=== PATIENT | female | born 1955 | race African-American/Black ===

== ENCOUNTER → 2016-11-30 | Outpatient (CLI) | payer OTHER ==
[~2016-11-30] MED LIST: ALPR-411 PO; FLUT0.15 NAE; FLX10 PO; HYDR-5688 PO; LEVO-366 PO; PROAIR HFA INH; PROM25TA16 PO; PROM25TA9 PO; ZNTT/150 PO
--- NOTE | 2016-11-30 12:26 | MAMMOGRAPHY REPORT ---
BILATERAL DIGITAL DIAGNOSTIC MAMMOGRAM TOMOSYNTHESIS WITH CAD AND TARGETED LEFT ULTRASOUND: 7 CLINICAL HISTORY: The patient reports an intermittent palpable lump in her left axilla which she has had since the summer. The patient reports a family history of breast cancer in her sister as well as daughter. TECHNIQUE: Breast tomosynthesis in addition to standard 2D mammography was performed. Current study was also evaluated with a Computer Aided Detection (CAD) system. Bilateral CC and MLO 2-D and boom synthesis images and spot magnification left CC and ML views were obtained. COMPARISON: Comparison is made to exams dated: 03/08/2015 mammogram, 12/11/2013 mammogram - [facility], 11/06/2012 mammogram - [facility], 09/05/2011 mammogram, 09/04/2010 mammogram, a nd 08/15/2010 mammogram - [facility]. BREAST COMPOSITION: The tissue of both breasts is heterogeneously dense, which may obscure small ma sses. FINDINGS: A triangle marker zhu the site of the palpable lump in the left axillary region. Morph ologically normal left axillary lymph nodes are seen in this region, without evidence of a mass or o ther suspicious mammographic abnormality. There are multiple scattered groups of calcifications thr oughout both breasts. There is one group of coarse heterogeneous calcifications in the left upper o uter quadrant which measures 2.2 cm, and appears more prominent compared to prior exams. This group appears similar to other groups scattered throughout both breasts. 2 biopsy marker clips are seen in the right breast from prior benign stereotactic biopsy of calcifications. The discussion of ster eotactic biopsy versus interval follow-up were discussed with the patient, and she prefers follow-up at this time given that she has had other benign biopsies of calcifications. Follow-up does seem r easonable given that this group appears similar to multiple other groups within both breasts, which are more suggestive of benign calcifications such as degenerating fibroadenomas. The remainder of b oth breasts are stable compared to prior exams, without suspicious masses, calcifications, or areas of architectural distortion noted. Targeted ultrasound was performed of the area of the palpable lump pointed out by the patient in the left axilla. The patient could not clearly pinpoint the lump on today's exam, however, could point to the general region of the lump. No suspicious masses or other suspicious sonographic abnormalit ies were noted in this region. Morphologically normal left axillary lymph nodes were incidentally s een. IMPRESSION: ACR-BI-RADS CATEGORY 3: PROBABLY BENIGN, TARGETED ULTRASOUND ACR-BI-RADS CATEGORY 3: [place] OBABLY BENIGN 1. No suspicious mammographic or sonographic abnormality at the site of the palpable left axillary lump. Recommend clinical follow-up. 2. Grouped coarse heterogeneous calcifications in the left upper outer quadrant appear more promine nt compared to prior exams. However, they do appear similar to multiple other grouped calcification s bilaterally. 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 Recommend follow-up diagnostic mammograms of the left breast in 6 months to confirm stability and/or coarsening on spot magnification views. The patient and her sister have been verbally notified of the results. Approximately 10% of breast cancers are not detected with mammography. A negative mammographic repor t should not delay biopsy if a clinically suggestive mass is present. Kavita Fierro M.D. ah/:11/30/2016 10:46:40 [employer] Operator: Rebecca Peters, [facility] letter sent: Follow Up Recommended 3 BI-RADS Code: ACR-BI-RADS Category 3: Probably Benign Ultrasound BI-RADS: ACR-BI-RADS Category 3: P robably Benign
== END | disposition home or self-care (01) ==
LOC: C.MAMM 09:00
PROVIDERS: ATTEND Nurse Practitioner
DX: N63 Unspecified lump in breast (principal)

== ENCOUNTER 2016-12-27 16:58 | Emergency (ER) | payer OTHER ==
[~2016-12-27] VITALS: Ht 154.9 cm; Wt 98.5 kg
[~2016-12-27 16:58] MED LIST changes: -FLUT0.15 NAE; -FLX10 PO; -HYDR-5688 PO; -LEVO-366 PO; -PROAIR HFA INH; -PROM25TA16 PO
[2016-12-27 17:02] VITALS: TEMP 36.4; Ht 154.9 cm; Wt 98.5 kg
[2016-12-27] MEDS ORDERED: FLUT0.15 NAE (19:18)
[2016-12-27] MEDS ORDERED: PROAIR HFA INH (19:18)
[2016-12-27] MEDS ORDERED: PROM25TA16 PO (19:18)
[2016-12-27] MEDS ORDERED: FLX10 PO (19:18)
[2016-12-27] MEDS ORDERED: METHYLPREDNISOLONE 125 MG VIAL IV STA (19:34)
[2016-12-27] MEDS ORDERED: ALBUT/IPRATROP 3MG/0.5MG NEB 3 ML VIAL INH ONE (19:45)
[2016-12-27] MEDS ORDERED: SODIUM CHLORIDE 0.9% 1000ML 1,000 ML IV ONE (19:45)
[2016-12-27 20:24] LABS: URINE APPEARANCE CLEAR (CLEAR); URINE BILIRUBIN NEG (NEG); URINE COLOR YELLOW; URINE EPITHELIAL CELL AUTO 20-30 /lpf (0-5); URINE NITRITE NEG (NEG); UROBILINOGEN NEG (NEG); ZZUR CULT IF INDIC CLEAN CATCH NO
[2016-12-27 20:31] LABS: MANUAL MICROSCOPIC REQUIRED? NO; REVIEW REQ? NO
--- NOTE | 2016-12-27 20:55 | DIAGNOSTIC IMAGING REPORT ---
CHEST 2 VIEWS ROUTINE CLINICAL HISTORY: Cough. Flulike symptoms. Fatigue, headache. COMPARISON STUDY: 09/08/2016 FINDINGS: The cardiac and mediastinal contours are normal. There is no evidence of focal pulmonary consolidation. There is no evidence of failure. No pleural effusions are visualized.[ IMPRESSION: No active disease in the chest. Electronically signed by: Madhu Peterson M.D. 12/27/2016 8:53 PM Dictated Date/Time: 12/27/2016 8:53 PM
[2016-12-27 21:18] LABS: BASO % 0.4 %; BASO ABS # 0.02 K/uL (0-0.2); COMPLETE YES; EOS % 2.1 %; HEMATOCRIT 38.8 % (37-47); IG% 0.4 %; LYMPH % 25.7 %; LYMPH ABS # 1.36 K/uL (1.2-3.4); MEAN CELL VOLUME 84.7 fL (80-100); MEAN CORPUSCULAR HEMOGLOBIN 28.6 pg (25-34); MEAN CORPUSCULAR HGB CONC 33.8 g/dl (32-36); MEAN PLATELET VOLUME 10.3 fL (7.4-10.4); NEUT % 67.4 %; PLATELET COUNT 262 K/uL (130-400); RED BLOOD COUNT 4.58 M/uL (4.2-5.4); WHITE BLOOD COUNT 5.29 K/uL (4.8-10.8)
[2016-12-27 21:33] LABS: BUN/CREATININE RATIO 14.2 (10-20); CALCIUM 9.8 mg/dl (8.5-10.1); CREATININE 0.91 mg/dl (0.60-1.20); MAGNESIUM 2.1 mg/dl (1.8-2.4); POTASSIUM 3.9 mmol/L (3.5-5.1)
[2016-12-27 21:43] LABS: ALB/GLOB RATIO 0.9 (0.9-2); THYROID STIMULATING HORMONE 0.613 uIu/ml (0.300-4.500)
[2016-12-27] MEDS ORDERED: LEVO-366 PO (22:28)
[2016-12-27 22:30] VITALS: BP 153/96; PULSE 82; O2SAT 98
[2016-12-27] MEDS ORDERED: LEVOFLOXACIN 250 MG TAB PO ONE (22:30)
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
== END 2016-12-27 22:53 | disposition home or self-care (01) ==
LOC: C.EDB 16:59 → C.EDC 22:53
DX: J01.90 Acute sinusitis, unspecified (principal); J20.9 Acute bronchitis, unspecified; F41.9 Anxiety disorder, unspecified; M70.72 Other bursitis of hip, left hip; M70.71 Other bursitis of hip, right hip; M75.31 Calcific tendinitis of right shoulder; M19.90 Unspecified osteoarthritis, unspecified site; F32.9 Major depressive disorder, single episode, unspecified; K21.9 Gastro-esophageal reflux disease without esophagitis; Z83.3 Family history of diabetes mellitus; Z83.79 Family history of other diseases of the digestive system; Z80.9 Family history of malignant neoplasm, unspecified; Z82.49 Family history of ischemic heart disease and other diseases of the circulatory system; Z84.1 Family history of disorders of kidney and ureter; Z83.6 Family history of other diseases of the respiratory system; Z79.899 Other long term (current) drug therapy

== ENCOUNTER 2017-03-28 21:02 | Emergency (ER) | payer OTHER ==
[~2017-03-28] VITALS: Ht 154.9 cm; Wt 101.3 kg
[~2017-03-28 21:02] MED LIST changes: -ALPR-411 PO; +FLUT0.15 NAE; +FLX10 PO; +PROAIR HFA INH; -PROM25TA9 PO; -ZNTT/150 PO
[2017-03-28 21:05] VITALS: TEMP 36.6; Ht 154.9 cm; Wt 101.3 kg
--- NOTE | 2017-03-28 22:01 | DIAGNOSTIC IMAGING REPORT ---
LEFT SHOULDER MIN 2 VIEWS ROUTINE CLINICAL HISTORY: bilateral shoulder pain pain COMPARISON: None. DISCUSSION: Moderate degenerative change glenohumeral joint. Significant degenerative change acromioclavicular joint. Minimal calcific tendinitis. No evidence for acute bony pathology. There is no evidence for soft tissue swelling. IMPRESSION: Moderate to rather significant degenerative change. Mild calcific tendinitis. Electronically signed by: Joseph Ndiaye M.D. 03/28/2017 10:00 PM Dictated Date/Time: 03/28/2017 10:00 PM
--- NOTE | 2017-03-28 22:02 | DIAGNOSTIC IMAGING REPORT ---
RIGHT SHOULDER MIN 2 VIEWS ROUTINE CLINICAL HISTORY: bilateral shoulder pain Right pain COMPARISON: None. DISCUSSION: Considerable degenerative change glenohumeral and acromioclavicular joints. Mild calcific supraspinatus tendinitis. No evidence for fracture or dislocation. There is no evidence for soft tissue swelling. IMPRESSION: Significant degenerative change. Calcific supraspinatus tendinitis. Electronically signed by: Joseph Ndiaye M.D. 03/28/2017 10:01 PM Dictated Date/Time: 03/28/2017 10:00 PM
--- NOTE | 2017-03-28 22:16 | EMERGENCY ROOM VISIT NOTE ---
ED Visit Note First contact with patient: 21:16 The patient was seen and examined with Jose Foy PA-C. I agree with the history, physical and findings. Please see the note for disposition and details. She has bilateral calcific tendonitis.
[2017-03-28] MEDS ORDERED: HYDR-5688 PO (22:53)
[2017-03-28] MEDS ORDERED: NORCO 5/325MG HOME PACK PO ONE (23:00)
[2017-03-28 23:06] VITALS: BP 135/85; PULSE 93; O2SAT 97
--- NOTE | 2017-03-29 03:23 | EMERGENCY ROOM VISIT NOTE ---
ED Visit Note First contact with patient: 21:16 Chief Complaint: Having pain in both shoulders. History of Present Illness: Ms. Pulido is a 61-year-old black female who ambulates into the ED accompanied by multiple family members complaining of bilateral shoulder pain with left shoulder prominence. Historically patient reports she's had multiple episodes of tendinitis and she has bilateral arthritis of the shoulders. Patient reports she has not recently injured her shoulders but reports that today she developed moderate to severe pain in both shoulders with left-sided prominence. Currently she describes the pain as a deep achy sensation. The pain is located throughout the shoulder joints, and into the deltoid muscles. There is not one area more prominent than the other. She rates her discomfort 7/10. The pain is nonradiating. Her pain worsens with all movement and palpation of the shoulders. She has not identified any alleviating factors related to the pain. She has not taken any medications for pain prior to arrival at the hospital. She denies any associated neck pain, upper extremity weakness/numbness/tingling , fevers, chills, sweats, skin eruptions, skin color changes, upper respiratory tract symptoms, cough, wheezing, shortness of breath, abdominal pain, nausea/ vomiting. Review of Systems: As noted above in history of present illness. 8 body systems were reviewed and found to be negative as noted above. Past Medical History: As previously noted bronchitis, asthma, hiatal hernia, GERD, anxiety, status post 2 sections, 3 unspecified knee surgeries and a hysterectomy. Current Medications: Xanax, Zantac, promethazine, Flonase. Allergies to Medications: Aspirin, ibuprofen, Toradol, lorazepam, NSAIDs, oxycodone. Social History: Patient is not employed; she lives alone and feels safe in her home environment; she denies tobacco and alcohol use. Physical Examination: Vital Signs: Date Time Temp Pulse Resp B/P Pulse Ox O2 Delivery O2 Flow Rate FiO2 03/28/17 23:06 93 20 135/85 97 03/28/17 21:05 36.6 104 20 149/88 97 Room Air GENERAL: 61-year-old female in mild to moderate distress due to pain, nontoxic- appearing, afebrile and hemodynamically stable. NEUROLOGICAL: Awake, alert and oriented to person, place and time. Answering questions appropriately and following commands. Normal gait. Good hand eye coordination. No focal motor or sensory deficits. SKIN: Warm, dry and pink. No soft tissue eruptions or trauma noted. UPPER EXTREMITIES: No gross bony deformity. Bilaterally patient has tenderness over the glenohumeral joint, the acromioclavicular joint, the distal clavicles, the scapulas, throughout the trapezius muscles excluding cervical portion of the muscles. They are tender there is questionable spasm. I do not appreciate any bony deformity or crepitus. She refuses to do range of motion exercises and muscle strength testing due to pain. I was not able to elicit deep tendon reflexes. Throughout the hands the skin was warm and pink and capillary refill is brisk. She is able to distinguish light sensations through all dermatomes. ED Course: Patient is assessed as noted above. Patient requested x-rays. Right Shoulder X-Rays: Were read by myself and the radiologist showing significant degenerative changes of the glenohumeral and acromioclavicular joint , mild calcification supraspinatus tendinitis and no evidence of fracture, dislocation or soft tissue swelling. Left Shoulder X-Rays: Were read by myself and the radiologist showing moderate degenerative changes of the glenohumeral joint and acromioclavicular joint. Minimal calcification tendinitis. No evidence of soft tissue swelling. Clinical Impression: Bilateral shoulder pain. Degenerative shoulder disease and calcification tendinitis. Disposition: Patient discharged home in stable condition accompanied by family member; prior to departure she was reassessed and subjectively reported she was feeling the same. Plan: Cough or measures including rest, ice and a sliding pain scale of acetaminophen and [place] was discussed with the patient. Patient was encouraged to follow-up with her primary care provider for recheck in 4-5 days. Patient was encouraged return to the ED for worsening/uncontrolled pain, upper extremity weakness/numbness/tingling or any new/concerning symptoms.
[2017-08-19] MEDS ORDERED: ALPR-411 PO (00:37)
[2017-10-01] MEDS ORDERED: TPRSR25 PO (15:23)
== END 2017-03-28 23:07 | disposition home or self-care (01) ==
LOC: C.EDB 21:04 → C.EDD 23:07
DX: M25.511 Pain in right shoulder (principal); M25.512 Pain in left shoulder; M19.011 Primary osteoarthritis, right shoulder; M19.012 Primary osteoarthritis, left shoulder; M75.32 Calcific tendinitis of left shoulder; M75.31 Calcific tendinitis of right shoulder; J45.909 Unspecified asthma, uncomplicated; K21.9 Gastro-esophageal reflux disease without esophagitis; F41.9 Anxiety disorder, unspecified; Z79.899 Other long term (current) drug therapy

== ENCOUNTER → 2017-04-12 | Outpatient (CLI) | payer OTHER ==
[~2017-04-12] MED LIST changes: +ALBU18002 INH; +ALPR-411 PO; -FLX10 PO; +HYDR-5688 PO; +PRLSR20 PO; +PROM12.57 PO; +PROM25TA16 PO; +TPRSR/25 PO; +TPRSR25 PO; +ZNTT/150 PO
== END | disposition home or self-care (01) ==
LOC: C.CPL 15:46
PROVIDERS: ATTEND Orthopaedic Surgery
DX: M75.122 Complete rotator cuff tear or rupture of left shoulder, not specified as traumatic (principal); R94.31 Abnormal electrocardiogram [ECG] [EKG]

== ENCOUNTER 2017-06-13 04:14 | Observation (INO) | payer OTHER ==
[2017-06-13] VITALS (7 sets, daily range): BP systolic 122–138; BP diastolic 81–86; PULSE 82–91; TEMP 36.4; O2SAT 95–100; Ht 154.9 cm; Wt 101.4 kg
[~2017-06-13] VITALS: Ht 154.9 cm; Wt 101.4 kg
[~2017-06-13 04:14] MED LIST changes: -ALBU18002 INH; -PRLSR20 PO; -PROM12.57 PO; -TPRSR/25 PO; -TPRSR25 PO
[2017-06-13] MEDS: NITROGLYCERIN 0.4 MG SL PER TAB CHARGE SL PRN ×3 (04:54→05:16)
[2017-06-13] MEDS ORDERED: HYDR-5688 PO (05:09)
[2017-06-13 05:30] LABS: BASO % 0.1 %; BASO ABS # 0.01 K/uL (0-0.2); COMPLETE YES; EOS % 0.9 %; HEMATOCRIT 37.4 % (37-47); IG% 0.4 %; LYMPH % 18.3 %; LYMPH ABS # 1.39 K/uL (1.2-3.4); MEAN CELL VOLUME 88.2 fL (80-100); MEAN CORPUSCULAR HEMOGLOBIN 27.6 pg (25-34); MEAN CORPUSCULAR HGB CONC 31.3 g/dl (32-36); MEAN PLATELET VOLUME 10.3 fL (7.4-10.4); MONO % 4.6 %; NEUT % 75.7 %; PLATELET COUNT 259 K/uL (130-400); RED BLOOD COUNT 4.24 M/uL (4.2-5.4); WHITE BLOOD COUNT 7.59 K/uL (4.8-10.8)
[2017-06-13 05:59] LABS: ALT/SGPT 20 U/L (12-78); AST/SGOT 13 U/L (15-37); BLOOD UREA NITROGEN 15 mg/dl (7-18); BUN/CREATININE RATIO 16.5 (10-20); CARBON DIOXIDE 27 mmol/L (21-32); CHLORIDE 109 mmol/L (98-107); CREATININE 0.93 mg/dl (0.60-1.20); GLUCOSE 114 mg/dl (70-99); SODIUM 141 mmol/L (136-145)
[2017-06-13 06:08] LABS: ALKALINE PHOSPHATASE 89 U/L (45-117)
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
[2017-06-13] MEDS ORDERED: ACETAMINOPHEN 325 MG TAB PO PRN (06:30)
[2017-06-13] MEDS ORDERED: ONDANSETRON INJ 2 MG/ML 2 ML VIAL IV PRN (06:30)
--- NOTE | 2017-06-13 06:34 | DIAGNOSTIC IMAGING REPORT ---
CHEST ONE VIEW PORTABLE CLINICAL HISTORY: Chest pain. COMPARISON STUDY: Chest radiograph December 27, 2016. FINDINGS: Mild elevation of the left hemidiaphragm is unchanged. There is no pneumothorax or pleural effusion. Pulmonary vascularity is normal. No consolidation is identified. Cardiomediastinal silhouette remains normal. Appearance of the chest is unchanged. IMPRESSION: No acute cardiopulmonary findings. Electronically signed by: Aguila White M.D. 06/13/2017 6:33 AM Dictated Date/Time: 06/13/2017 6:32 AM
[2017-06-13] MEDS ORDERED: ALBUTEROL HFA 8 GM INHALER INH PRN (06:45)
[2017-06-13] MEDS ORDERED: HYDROCODONE/ACETAMOPHEN 5/325MG TAB PO PRN (06:45)
[2017-06-13] MEDS ORDERED: ALPRAZOLAM 0.5 MG TAB PO PRN (06:45)
[2017-06-13] MEDS ORDERED: PROMETHAZINE HCL 25 MG TAB PO PRN (06:45)
[2017-06-13] MEDS ORDERED: IV FLUIDS COMPLETED PRN (06:45)
[2017-06-13] MEDS ORDERED: NSS + 20MEQ KCL 1000ML 1,000 ML IV SCH (08:00)
--- NOTE | 2017-06-13 08:08 | HISTORY & PHYSICAL EXAMINATION ---
DATE OF ADMISSION: 06/13/2017 CHIEF COMPLAINT: Chest pain with radiation to left arm and shortness of breath since early this morning. HISTORY OF PRESENT COMPLAINT: She is a 61-year-old female with significant past medical history of anxiety/depression and also esophageal reflux apparently, has not been sleeping since last evening due to severe anxiety. She felt chest pain at around 12-12:30 a.m. and then she took a half of her Xanax. The pain did not resolve and she called hotline and was advised to take precaution to relieve the panic attack. She took another Xanax without any relief, then she asked one of her relative to drive her to the Emergency Room. In the ER she received 3 nitro and that relieved the pain to some extent. She had to take another Xanax in my presence because of severe anxiety. She had the pain for about 1-2 hours and at some point she was feeling that somebody is sitting on her chest. She did not have any kind of pain before. She did have nausea but no vomiting and no abdominal pain. Did not have any fevers, chills or rigors. No cough or phlegm and no other symptoms. PAST MEDICAL HISTORY: Significant for anxiety/depression, and esophageal reflux. PAST SURGICAL HISTORY: Breast biopsy, benign in 2005, delivery, knee arthroscopy and partial hysterectomy and also recent left shoulder surgery. FAMILY HISTORY: Significant that mom has diabetes and heart disease. Father at the age of 80, history of CHF. Mother also did have lung cancer. SOCIAL HISTORY: She is . She has 3 children. She lives alone. She quit smoking in 1997 and does not use any alcohol. ALLERGIES: ASPIRIN, IBUPROFEN, KETOROLAC, TROMETHAMINE, LORAZEPAM, NSAIDs AND OXYCODONE. MEDICATIONS: She has been on Xanax 0.5 mg daily as needed, nasal spray as directed, hydrocodone/acetaminophen 5/325 one to two tablets p.o. q. 6 hourly p.r.n., Promethazine 25 mg q. 6 hourly p.r.n., Zantac 150 mg b.i.d., and ProAir 2 puffs q. 4 hourly p.r.n. REVIEW OF SYSTEMS: All other systems reviewed, unremarkable except those mentioned in history of present complaint. PHYSICAL EXAMINATION: GENERAL: On examination in the Emergency Room, she was still having some chest discomfort but no pain. VITAL SIGNS: Temperature 36.5, pulse was 84, blood pressure 106/69, saturation 97% on room air. HEENT: Unremarkable. NECK: Supple. No JVD, no bruit. CHEST: Clear to auscultation bilaterally. HEART: S1, S2 regular, no murmur. ABDOMEN: Soft, benign, nontender, no organomegaly. Bowel sounds present. EXTREMITIES: Trace edema bilaterally. MUSCULOSKELETAL SYSTEM: Did not show any acute arthritis involving any joint. CENTRAL NERVOUS SYSTEM: She was alert, awake, oriented x3. LABORATORY DATA: Noted. Today white count was 7.59, H&H 11.7/37.4, platelet was 259. Sodium 141, potassium 4.0, chloride 109, carbon dioxide 27, BUN 15, creatinine 0.93, random glucose 114. LFTs unremarkable. Troponin was less than 0.030. Albumin 3.3. EKG was in sinus rhythm, rate of 89 per minute. Normal axis and no significant ST-T wave changes. Chest x-ray, no acute findings. IMPRESSION AND PLAN: 1. Atypical chest pain. The patient will be admitted to telemetry unit for observation. She has severe anxiety. She cannot walk on a treadmill. Her initial troponin is negative. We will get serial troponin. She received nitro, will give nitro for chest pain if it recurs and probable dobutamine stress echo today. 2. Severe anxiety/depression, we will continue her Xanax and other medications. 3. Gastroesophageal reflux disease. She has been on ranitidine, continue with that. 4. Deep venous thrombosis prophylaxis with sequential compression devices and with ambulation. No pharmacological anticoagulation at this time. 5. Code status -- She will be a full code. In my clinical judgment, the beneficiary meets criteria as per CMS for 2 midnight stay in the hospital. PATRICIAD
[2017-06-13] MEDS ORDERED: FLUTICASONE PROPIONATE NA SPR 16 GM BTL NAE SCH (09:00)
[2017-06-13] MEDS ORDERED: RANITIDINE HCL 150 MG TAB PO SCH (09:00)
[2017-06-13] MEDS ORDERED: METOPROLOL TARTRATE 1 MG/ML VIAL ONE (12:01)
[2017-06-13] MEDS ORDERED: DOBUTamine HCL 12.5 MG/ML 20 ML VIAL ONE (12:01)
--- NOTE | 2017-06-13 14:23 | Discharge Instructions ---
Discharge Instructions Date of Service Jun 13, 2017. Admission Reason for Admission: Atypical Chest Pain Discharge Discharge Diagnosis / Problem: CHEST PAIN , NON CARDAIC , NEGATIVE CARDIAC STRESS TEST /ANXIETY DISORDER Discharge Goals Goal(s): Diagnostic testing, Therapeutic intervention Activity Recommendations Activity Limitations: resume your previous activity . Instructions / Follow-Up Instructions / Follow-Up HOSPITAL FOLLOW UP : 06/17/2017 1:00 PM Janet Black MD General Internal Medicine [facility] FOLLOW UP WITH PSYCHIATRY AT [facility] FOR ANXIETY /DEPRESSION PLEASE CALL TO SCHEDULE APPOINTMENT Current Hospital Diet Patient's current hospital diet: AHA Diet (Heart Healthy) Discharge Diet Recommended Diet: AHA Diet (Heart Healthy) Pending Studies Studies pending at discharge: no Medical Emergencies . Who to Call and When: Medical Emergencies: If at any time you feel your situation is an emergency, please call 911 immediately. . Non-Emergent Contact Non-Emergency issues call your: Primary Care Provider . . "Provider Documentation" section prepared by Jamee Mon. . VTE Core Measure Inpt VTE Proph given/why not?: Unfractionated heparin SQ
--- NOTE | 2017-06-13 15:06 | DOBUTAMINE ECHO ---
*NOTICE TO RECEIVING REPUBLICAN AGENCY This information is strictly Confidential and protected under [place] law. [place] law prohibits you from making any further disclosure of this information unless further disclosure is expressly permitted by the written consent of the person to whom it pertains or is authorized by law. A general authorization for the release of medical or other information is not sufficient for this purpose. Hospital accepts no responsibility if the information is made available to any other person, INCLUDING THE PATIENT. Interpretation Summary * STRESS STUDY: Normal pharmacologic stress echocardiogram. No echocardiographic or ECG evidence of myocardial ischemia having achieved heart rate adequate for diagnostic purposes. Procedure Details * DOBUTAMINE ECHO, CPT#30838 * ECHO COLOR FLOW, CPT #[id number] * ECHO DOPPLER, CPT #[id number] * A contrast injection of Definity was performed to improve assessment of LV function. * Contrast was injected into an intravenous site in the right arm. * One vial of Definity ultrasound contrast was diluted in normal saline to a total volume of 10 ml. A total of '5' ml of solution was administered during imaging. * Lot # [id number] of Definity utilized for procedure. * Expiration date AUG 21. * The attending nurse who injected the contrast agent was SUSAN HERNANDEZ, RN. Left Ventricle * The left ventricle is normal in size. * There is mild concentric left ventricular hypertrophy. * Left ventricular systolic function is low normal. * Ejection Fraction = 50-55%. * The left ventricular wall motion is normal at rest. Right Ventricle * The right ventricle is normal size. Atria * The left atrial size is normal. * Right atrial size is normal. * There is no evidence of atrial septal defect, but resolution does not allow assessment for a patent foramen ovale. Mitral Valve * The mitral valve is normal in structure and function. Tricuspid Valve * The tricuspid valve is normal in structure and function. Aortic Valve * The aortic valve is normal in structure and function. Pulmonic Valve * The pulmonic valve is not well visualized. Great Vessels * The aortic root and proximal ascending aorta are normal sized. Pericardium * There is no pericardial effusion. Stress Parameters * Baseline ECG was essentially normal. No symptoms were noted. * Stress ECG: No ST changes. No arrhythmias. * The stress ECG response was normal * The stress portion of this study was personally supervised by the undersigned interpreting physician. * Rest heart rate was '79' BPM. * Rest blood pressure was '126/67' * Maximum heart rate achieved was 151 bpm. * Maximum heart rate was 93 % of maximum age-predicted heart rate. * Maximum blood pressure was '175/97' * Maximum Dobutamine infusion rate was '40' mcg/kg/min. * A total of 0 mg of intravenous Atropine was used to supplement Dobutamine for heart rate response. * Dobutamine infusion was terminated due to achieving target heart rate * A total of 5.0 mg of IV Metoprolol was administered to reverse Dobutamine-induced tachycardia. Right Ventricle * The right ventricular wall motion is normal. MMode 2D Measurements and Calculations IVSd 1.2 cm IVSs 1.5 cm LVIDd 3.5 cm LVIDs 2.5 cm LVPWd 1.3 cm LVPWs 1.2 cm IVS/LVPW 0.98 FS 26.9 % EDV(Teich) 49.6 ml ESV(Teich) 23.0 ml EF(Teich) 53.5 % EDV(cubed) 41.6 ml ESV(cubed) 16.2 ml EF(cubed) 60.9 % % IVS thick 19.9 % % LVPW thick -3.74 % LV mass(C)d 144.3 grams LV mass(C)dI 72.9 grams/m\S\2 LV mass(C)s 107.6 grams LV mass(C)sI 54.4 grams/m\S\2 SV(Teich) 26.6 ml SI(Teich) 13.4 ml/m\S\2 SV(cubed) 25.3 ml SI(cubed) 12.8 ml/m\S\2 Ao root diam 2.7 cm Ao root area 5.6 cm\S\2 LA dimension 2.7 cm LA/Ao 1.0 LVOT diam 2.0 cm LVOT area 3.2 cm\S\2 LVAd ap4 33.4 cm\S\2 LVLd ap4 8.5 cm EDV(MOD-sp4) 105.5 ml EDV(sp4-el) 111.8 ml LVAs ap4 22.8 cm\S\2 LVLs ap4 7.4 cm ESV(MOD-sp4) 56.4 ml ESV(sp4-el) 59.2 ml EF(MOD-sp4) 46.5 % EF(sp4-el) 47.0 % LVAd ap2 36.0 cm\S\2 LVLd ap2 8.9 cm EDV(MOD-sp2) 117.3 ml EDV(sp2-el) 123.3 ml LVAs ap2 24.4 cm\S\2 LVLs ap2 7.4 cm ESV(MOD-sp2) 65.8 ml ESV(sp2-el) 68.6 ml EF(MOD-sp2) 43.9 % EF(sp2-el) 44.4 % LVLd %diff 5.0 % EDV(MOD-bp) 114.4 ml LVLs %diff -1.17 % ESV(MOD-bp) 61.0 ml EF(MOD-bp) 46.7 % SV(MOD-sp4) 49.0 ml SI(MOD-sp4) 24.8 ml/m\S\2 SV(MOD-sp2) 51.5 ml SI(MOD-sp2) 26.0 ml/m\S\2 SV(MOD-bp) 53.4 ml SI(MOD-bp) 27.0 ml/m\S\2 SV(sp4-el) 52.6 ml SI(sp4-el) 26.6 ml/m\S\2 SV(sp2-el) 54.7 ml SI(sp2-el) 27.7 ml/m\S\2 Doppler Measurements and Calculations MV E max james 87.2 cm/sec MV A max james 79.2 cm/sec MV E/A 1.1 MV P1/2t max james 98.9 cm/sec MV P1/2t 69.2 msec MVA(P1/2t) 3.2 cm\S\2 MV dec slope 418.8 cm/sec\S\2 MV dec time 0.23 sec Ao V2 max 110.6 cm/sec Ao max PG 4.9 mmHg Ao max PG (full) 1.1 mmHg MARUQEZ(V,A) 2.8 cm\S\2 MARQUEZ(V,D) 2.8 cm\S\2 LV V1 max PG 3.8 mmHg LV V1 max 96.9 cm/sec PA V2 max 78.9 cm/sec PA max PG 2.5 mmHg TR max james 235.8 cm/sec
--- NOTE | 2017-06-13 15:11 | Progress Note ---
Internal Med Progress Note Date of Service: Jun 13, 2017. Provider Documentation: SUBJECTIVE: no complain of chest pain or SOB Dobutamine stress test is negative mentions of having anxiety attack off and on has been taking Xanax as needed for some time not on SSRI as had side effects from multiple medications willing to talk with psychiatry in patient OBJECTIVE: Vital Signs-as noted below Exam: General-no sign of distress, comfortable Eyes-sclera non icteric ENT-NAD Neck-no JVD Lungs-CTA , no rales or wheeze Heart-regular S1/S2 Abdomen-soft, non tender Extremities-no rash or deformity Neuro-AAO x3, no focal neurological deficit Lab data as noted below. ASSESSMENT & PLAN: 1. Atypical chest pain. -possible due to anxiety /panic attack no symptom at present , EKG , cardiac markers are negative Dobutamine stress test negative for stress induced ischemia 2. Severe anxiety/PANIC DISORDER /DEPRESSION takes Xanax as needed no relief of symptom last night while having a panic attack not following with Psychiatry at present prior hx of depression /mood disorder -Bipolar required inpatient Psych admission after her of Cancer did not tolerate [place] psych eval requested will benefit form continued out pt follow up full code DVT PROPHYLAXIS scd and teds DISPOSITION stable to be discharged home today after Psychiatry eval Vital Signs: Date Time Temp Pulse Resp B/P (MAP) Pulse Ox O2 Delivery O2 Flow Rate FiO2 06/13/17 12:00 96 Room Air 06/13/17 11:24 36.4 83 18 138/86 (103) 96 Room Air 06/13/17 07:58 100 Room Air 06/13/17 07:44 36.4 82 18 130/83 (99) 100 Room Air 06/13/17 07:07 82 18 98 06/13/17 06:35 103/59 96 Room Air 06/13/17 06:22 73 17 06/13/17 05:52 78 18 06/13/17 05:49 103/71 06/13/17 05:22 87 20 06/13/17 05:17 106/69 97 Room Air 06/13/17 05:14 84 22 06/13/17 04:44 82 22 06/13/17 04:43 Room Air 06/13/17 04:40 92 06/13/17 04:26 36.5 89 24 137/90 97 Room Air Lab Results: Results Past 24 Hours Test 06/13/17 05:05 06/13/17 05:19 06/13/17 06:57 06/13/17 12:32 Range/Units White Blood Count 7.59 4.8-10.8 K/uL Red Blood Count 4.24 4.2-5.4 M/uL Hemoglobin 11.7 12.0-16.0 g/dL Hematocrit 37.4 37-47 % Mean Corpuscular Volume 88.2 80-100 fL Mean Corpuscular Hemoglobin 27.6 25-34 pg Mean Corpuscular Hemoglobin Concent 31.3 32-36 g/dl Platelet Count 259 130-400 K/uL Mean Platelet Volume 10.3 7.4-10.4 fL Neutrophils (%) (Auto) 75.7 % Lymphocytes (%) (Auto) 18.3 % Monocytes (%) (Auto) 4.6 % Eosinophils (%) (Auto) 0.9 % Basophils (%) (Auto) 0.1 % Neutrophils # (Auto) 5.74 1.4-6.5 K/uL Lymphocytes # (Auto) 1.39 1.2-3.4 K/uL Monocytes # (Auto) 0.35 0.11-0.59 K/uL Eosinophils # (Auto) 0.07 0-0.5 K/uL Basophils # (Auto) 0.01 0-0.2 K/uL RDW Standard Deviation 44.5 36.4-46.3 fL RDW Coefficient of Variation 13.7 11.5-14.5 % Immature Granulocyte % (Auto) 0.4 % Immature Granulocyte # (Auto) 0.03 0.00-0.02 K/uL Sodium Level 141 136-145 mmol/L Potassium Level 4.0 3.5-5.1 mmol/L Chloride Level 109 98-107 mmol/L Carbon Dioxide Level 27 21-32 mmol/L Anion Gap 5.0 3-11 mmol/L Blood Urea Nitrogen 15 7-18 mg/dl Creatinine 0.93 0.60-1.20 mg/dl Est Creatinine Clear Calc Drug Dose 71.2 ml/min Estimated GFR () 78.0 Estimated GFR (Non- 67.3 BUN/Creatinine Ratio 16.5 10-20 Random Glucose 114 70-99 mg/dl Calcium Level 9.0 8.5-10.1 mg/dl Total Bilirubin 0.2 0.2-1 mg/dl Direct Bilirubin < 0.1 0-0.2 mg/dl Aspartate Amino Transf (AST/SGOT) 13 15-37 U/L Alanine Aminotransferase (ALT/SGPT) 20 12-78 U/L Alkaline Phosphatase 89 45-117 U/L Total Creatine Kinase 65 50 26-192 U/L Creatine Kinase MB < 0.5 < 0.5 0.5-3.6 ng/ml Creatine Kinase MB Ratio 0-3.0 Total Protein 7.0 6.4-8.2 gm/dl Albumin 3.3 3.4-5.0 gm/dl Chemistry Specimen Hemolysis Bedside Troponin I < 0.030 0-0.045 ng/ml Troponin I < 0.015 0-0.045 ng/ml Test 06/13/17 14:32 Range/Units
--- NOTE | 2017-06-13 16:25 | Discharge Summary ---
Discharge Summary Date of Service Jun 13, 2017. Discharge Summary Admission Date: Jun 13, 2017 at 06:32 Discharge Date: Jun 13, 2017 Discharge Disposition: Home Principal Diagnosis: CHEST PAIN , NON CARDIAC , NEGATIVE CARDIAC STRESS TEST /ANXIETY DISORDER Procedures: DOBUTAMINE STRESS TEST : STRESS STUDY: Normal pharmacologic stress echocardiogram. No echocardiographic or ECG evidence of myocardial ischemia having achieved heart rate adequate for diagnostic purposes. Medication Reconciliation Continued Medications: Alprazolam (Xanax) 0.5 Mg Tab 0.5 MG PO DAILY PRN for Anxiety, 0 Refills Fluticasone Propionate (Nasal) (Flonase Allergy Relief) 50 Mcg/Act Spr 2 SPRAYS MAYRA DAILY Hydrocodone/Acetaminophen 5MG/325MG (Jamison 5MG/325MG) Tab 1-2 TABLETS PO Q6 PRN for Pain, TAB PRN PAIN Promethazine HCl (Promethazine HCl) 25 Mg Tab 25 MG PO Q6 PRN for Pain, #20 Ranitidine (Zantac) 150 Mg Tab 150 MG PO BID, 0 Refills [Proair Hfa] () 2 PUFF INH Q4 PRN for SOB/Wheezing Admission Information HPI (per Admitting provider): DATE OF ADMISSION: 06/13/2017 CHIEF COMPLAINT: Chest pain with radiation to left arm and shortness of breath since early this morning. HISTORY OF PRESENT COMPLAINT: She is a 61-year-old female with significant past medical history of anxiety/depression and also esophageal reflux apparently, has not been sleeping since last evening due to severe anxiety. She felt chest pain at around 12-12:30 a.m. and then she took a half of her Xanax. The pain did not resolve and she called hotline and was advised to take precaution to relieve the panic attack. She took another Xanax without any relief, then she asked one of her relative to drive her to the Emergency Room. In the ER she received 3 nitro and that relieved the pain to some extent. She had to take another Xanax in my presence because of severe anxiety. She had the pain for about 1-2 hours and at some point she was feeling that somebody is sitting on her chest. She did not have any kind of pain before. She did have nausea but no vomiting and no abdominal pain. Did not have any fevers, chills or rigors. No cough or phlegm and no other symptoms. PAST MEDICAL HISTORY: Significant for anxiety/depression, and esophageal reflux. PAST SURGICAL HISTORY: Breast biopsy, benign in 2006, delivery, knee arthroscopy and partial hysterectomy and also recent left shoulder surgery. FAMILY HISTORY: Significant that mom has diabetes and heart disease. Father at the age of 80, history of CHF. Mother also did have lung cancer. SOCIAL HISTORY: She is . She has 3 children. She lives alone. She quit smoking in 1997 and does not use any alcohol. ALLERGIES: ASPIRIN, IBUPROFEN, KETOROLAC, TROMETHAMINE, LORAZEPAM, NSAIDs AND OXYCODONE. MEDICATIONS: She has been on Xanax 0.5 mg daily as needed, nasal spray as directed, hydrocodone/acetaminophen 5/325 one to two tablets p.o. q. 6 hourly p.r.n., Promethazine 25 mg q. 6 hourly p.r.n., Zantac 150 mg b.i.d., and ProAir 2 puffs q. 4 hourly p.r.n. REVIEW OF SYSTEMS: All other systems reviewed, unremarkable except those mentioned in history of present complaint. Physical Exam (per Admitting): PHYSICAL EXAMINATION: GENERAL: On examination in the Emergency Room, she was still having some chest discomfort but no pain. VITAL SIGNS: Temperature 36.5, pulse was 84, blood pressure 106/69, saturation 97% on room air. HEENT: Unremarkable. NECK: Supple. No JVD, no bruit. CHEST: Clear to auscultation bilaterally. HEART: S1, S2 regular, no murmur. ABDOMEN: Soft, benign, nontender, no organomegaly. Bowel sounds present. EXTREMITIES: Trace edema bilaterally. MUSCULOSKELETAL SYSTEM: Did not show any acute arthritis involving any joint. CENTRAL NERVOUS SYSTEM: She was alert, awake, oriented x3. Hospital Course 1. Atypical chest pain. -possible due to anxiety /panic attack no symptom at present , EKG , cardiac markers are negative Dobutamine stress test negative for stress induced ischemia 2. Severe anxiety/PANIC DISORDER /DEPRESSION takes Xanax as needed no relief of symptom last night while having a panic attack not following with Psychiatry at present prior hx of depression /mood disorder -Bipolar required inpatient Psych admission after her of Cancer did not tolerate [place] psych eval requested will benefit form continued out pt follow up full code DVT PROPHYLAXIS scd and teds DISPOSITION stable to be discharged home today after Psychiatry eval Discharge Instructions Discharge Instructions Date of Service Jun 13, 2017. Admission Reason for Admission: Atypical Chest Pain Discharge Discharge Diagnosis / Problem: CHEST PAIN , NON CARDIAC , NEGATIVE CARDIAC STRESS TEST /ANXIETY DISORDER Discharge Goals Goal(s): Diagnostic testing, Therapeutic intervention Activity Recommendations Activity Limitations: resume your previous activity . Instructions / Follow-Up Instructions / Follow-Up HOSPITAL FOLLOW UP : 06/17/2017 1:00 PM Janet Black MD General Internal Medicine [facility] FOLLOW UP WITH PSYCHIATRY AT [facility] FOR ANXIETY /DEPRESSION PLEASE CALL TO SCHEDULE APPOINTMENT Current Hospital Diet Patient's current hospital diet: AHA Diet (Heart Healthy) Discharge Diet Recommended Diet: AHA Diet (Heart Healthy) Pending Studies Studies pending at discharge: no Medical Emergencies . Who to Call and When: Medical Emergencies: If at any time you feel your situation is an emergency, please call 911 immediately. . Non-Emergent Contact Non-Emergency issues call your: Primary Care Provider . . "Provider Documentation" section prepared by Jamee Mon. . VTE Core Measure Inpt VTE Proph given/why not?: Unfractionated heparin SQ Additional Copies To Janet Black M.D.
--- NOTE | 2017-06-13 17:20 | Psychiatric Consultation ---
Psychiatric Consultation Date of Service: Jun 13, 2017. discussed briefly with liaison, patient with generalized anxiety about health/ safety of daughter following of , admit for cardiac w/u. Takes Xanax prn occasionally. There is no active SI and is agreeable to outpatient follow-up. Liaison to facilitate. As patient is in process of being discharged a formal psych consult is being cancelled following liaison discussion with Dr. Mon.
== END 2017-06-13 17:59 | disposition home or self-care (01) ==
LOC: C.EDB 04:15 → C.MED 06:32 → ENRESERV 07:00
PROVIDERS: ADMIT Internal Medicine; ATTEND Hospitalist
DX: R07.89 Other chest pain (principal); F41.8 Other specified anxiety disorders; F32.9 Major depressive disorder, single episode, unspecified; K21.9 Gastro-esophageal reflux disease without esophagitis; Z83.3 Family history of diabetes mellitus; Z82.49 Family history of ischemic heart disease and other diseases of the circulatory system; Z87.891 Personal history of nicotine dependence; Z79.899 Other long term (current) drug therapy

== ENCOUNTER 2017-08-19 13:20 | Emergency (ER) | payer OTHER ==
[~2017-08-19] VITALS: Ht 154.9 cm; Wt 101.3 kg
[~2017-08-19 13:20] MED LIST changes: -PROM25TA16 PO; -ZNTT/150 PO
[2017-08-19 13:22] VITALS: TEMP 36.7; Ht 154.9 cm; Wt 101.3 kg
[2017-08-19 13:41] VITALS: O2SAT 98
[2017-08-19] MEDS ORDERED: PRLSR20 PO (13:50)
[2017-08-19] MEDS ORDERED: ALBU18002 INH (13:51)
[2017-08-19] MEDS ORDERED: ONDANSETRON INJ 2 MG/ML 2 ML VIAL IV STA (13:53)
[2017-08-19] MEDS ORDERED: SODIUM CHLORIDE 0.9% 1000ML 1,000 ML IV SCH (14:00)
[2017-08-19] MEDS ORDERED: FAMOTIDINE IV INJ 20 MG in DEXTROSE 5% 100ML 100 ML IV SCH (14:00)
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
[2017-08-19 14:28] LABS: BASO % 0.2 %; BASO ABS # 0.01 K/uL (0-0.2); COMPLETE YES; EOS % 1.6 %; HEMATOCRIT 37.7 % (37-47); LYMPH % 17.8 %; LYMPH ABS # 0.99 K/uL (1.2-3.4); MEAN CELL VOLUME 86.5 fL (80-100); MEAN CORPUSCULAR HEMOGLOBIN 29.1 pg (25-34); MEAN CORPUSCULAR HGB CONC 33.7 g/dl (32-36); MEAN PLATELET VOLUME 10.7 fL (7.4-10.4); MONO % 3.8 %; NEUT % 76.6 %; PLATELET COUNT 254 K/uL (130-400); RED BLOOD COUNT 4.36 M/uL (4.2-5.4); WHITE BLOOD COUNT 5.57 K/uL (4.8-10.8)
[2017-08-19 14:51] LABS: ALT/SGPT 19 U/L (12-78); AST/SGOT 12 U/L (15-37); BLOOD UREA NITROGEN 9 mg/dl (7-18); CARBON DIOXIDE 26 mmol/L (21-32); CHLORIDE 106 mmol/L (98-107); CREATININE 0.91 mg/dl (0.60-1.20); GLUCOSE 93 mg/dl (70-99); POTASSIUM 3.9 mmol/L (3.5-5.1); SODIUM 140 mmol/L (136-145)
--- NOTE | 2017-08-19 14:55 | DIAGNOSTIC IMAGING REPORT ---
CHEST ONE VIEW PORTABLE CLINICAL HISTORY: Atypical chest pain COMPARISON STUDY: 06/13/2017 FINDINGS: The cardiac and mediastinal contours are normal. There is no evidence of focal pulmonary consolidation. There is no evidence of failure. No pleural effusions are visualized.[ IMPRESSION: No active disease in the chest. Electronically signed by: Madhu Peterson M.D. 08/19/2017 2:54 PM Dictated Date/Time: 08/19/2017 2:53 PM
[2017-08-19 14:56] LABS: ALKALINE PHOSPHATASE 75 U/L (45-117)
[2017-08-19 15:20] VITALS: PULSE 73
[2017-08-19 15:33] VITALS: BP 138/89
--- NOTE | 2017-08-19 15:43 | EMERGENCY ROOM VISIT NOTE ---
ED Visit Note First contact with patient: 13:28 The patient was seen and examined with Dr. Davis-benjie. I agree with the history, physical and findings. Please see the note for disposition and details. Patient had work up for atypical chest pain. Unremarkable EKG, neg trop. Patient CXR clear. Patient LFTs and lipase WNL. Patient w/ only mild improvement. Also of note, neg stress ECHO in June. Patient given GI f/u and increased dose of PPI.
[2017-08-19] MEDS ORDERED: ZNTT/150 PO (16:48)
[2017-08-19] MEDS ORDERED: PROM25TA16 PO (19:18)
== END 2017-08-19 16:00 | disposition home or self-care (01) ==
LOC: C.EDB 13:21 → C.EDC 16:00
DX: K21.9 Gastro-esophageal reflux disease without esophagitis (principal); F41.9 Anxiety disorder, unspecified; F32.9 Major depressive disorder, single episode, unspecified; Z87.01 Personal history of pneumonia (recurrent); Z90.710 Acquired absence of both cervix and uterus; Z80.9 Family history of malignant neoplasm, unspecified; Z83.3 Family history of diabetes mellitus; Z82.49 Family history of ischemic heart disease and other diseases of the circulatory system; Z84.1 Family history of disorders of kidney and ureter; Z79.899 Other long term (current) drug therapy

== ENCOUNTER 2017-09-20 08:22 | Emergency (ER) | payer OTHER ==
[~2017-09-20] VITALS: Ht 154.9 cm; Wt 100.0 kg
[~2017-09-20 08:22] MED LIST changes: +ALBU18002 INH; -FLUT0.15 NAE; -HYDR-5688 PO; +PRLSR20 PO; -PROAIR HFA INH; +PROM25TA16 PO; +ZNTT/150 PO
[2017-09-20 08:27] VITALS: TEMP 36.5; Ht 154.9 cm; Wt 100.0 kg
--- NOTE | 2017-09-20 08:59 | DIAGNOSTIC IMAGING REPORT ---
CHEST ONE VIEW PORTABLE HISTORY: 61 years-old Female CHEST PAIN acute atypical chest pain COMPARISON: Chest radiograph 08/19/2017 TECHNIQUE: Portable AP view of the chest FINDINGS: Cardiomediastinal and hilar silhouettes are within normal limits. Mild left hemidiaphragmatic elevation redemonstrated. There is no pneumothorax, pleural effusion, focal airspace consolidation or overt pulmonary edema. Mild degenerative changes involve the shoulders and spine. IMPRESSION: No acute cardiopulmonary process. The above report was generated using voice recognition software. It may contain grammatical, syntax or spelling errors. Electronically signed by: Nahum Candelaria M.D. 09/20/2017 8:58 AM Dictated Date/Time: 09/20/2017 8:56 AM
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
[2017-09-20 09:52] LABS: BASO % 0.1 %; BASO ABS # 0.01 K/uL (0-0.2); COMPLETE YES; EOS % 1.5 %; HEMATOCRIT 39.2 % (37-47); IG% 0.1 %; LYMPH % 14.7 %; MEAN CELL VOLUME 86.7 fL (80-100); MEAN CORPUSCULAR HEMOGLOBIN 28.5 pg (25-34); MEAN CORPUSCULAR HGB CONC 32.9 g/dl (32-36); MEAN PLATELET VOLUME 10.9 fL (7.4-10.4); MONO % 3.8 %; NEUT % 79.8 %; PLATELET COUNT 248 K/uL (130-400); RED BLOOD COUNT 4.52 M/uL (4.2-5.4)
[2017-09-20 10:13] LABS: CALCIUM 8.9 mg/dl (8.5-10.1); CREATININE 0.89 mg/dl (0.60-1.20); POTASSIUM 3.7 mmol/L (3.5-5.1)
[2017-09-20 10:24] LABS: THYROID STIMULATING HORMONE 0.827 uIu/ml (0.300-4.500)
[2017-09-20 12:10] VITALS: BP 158/87; PULSE 83; O2SAT 98
== END 2017-09-20 12:12 | disposition home or self-care (01) ==
LOC: EDBD 08:22 → C.EDB 08:24
DX: R00.2 Palpitations (principal); Z79.899 Other long term (current) drug therapy; F32.9 Major depressive disorder, single episode, unspecified; F41.1 Generalized anxiety disorder; Z87.01 Personal history of pneumonia (recurrent); Z90.710 Acquired absence of both cervix and uterus; Z80.9 Family history of malignant neoplasm, unspecified; Z83.3 Family history of diabetes mellitus; Z82.49 Family history of ischemic heart disease and other diseases of the circulatory system; Z84.1 Family history of disorders of kidney and ureter

== ENCOUNTER 2017-09-30 08:52 | Observation (INO) | payer OTHER ==
[~2017-09-30] VITALS: Ht 154.9 cm; Wt 101.5 kg
[2017-09-30] MEDS ORDERED: SODIUM CHLORIDE 0.9% 500ML 500 ML IV STA (09:30)
[2017-09-30 09:40] LABS: MEAN CORPUSCULAR HEMOGLOBIN 28.7 pg (25-34); MEAN CORPUSCULAR HGB CONC 32.9 g/dl (32-36); MEAN PLATELET VOLUME 10.8 fL (7.4-10.4); PLATELET COUNT 259 K/uL (130-400); RED BLOOD COUNT 4.71 M/uL (4.2-5.4); WHITE BLOOD COUNT 6.46 K/uL (4.8-10.8)
[2017-09-30 09:49] LABS: PARTIAL THROMBOPLASTIN RATIO 1.1; PROTHROMBIN TIME (PATIENT) 10.6 SECONDS (9.0-12.0)
--- NOTE | 2017-09-30 09:55 | DIAGNOSTIC IMAGING REPORT ---
CHEST ONE VIEW PORTABLE CLINICAL HISTORY: chest pain dyspnea COMPARISON STUDY: 1117 1017 FINDINGS: The bones soft tissues and hemidiaphragms are normal. The cardiomediastinal silhouette is normal. The lungs are clear. The pulmonary vasculature is normal. IMPRESSION: Negative chest. The above report was generated using voice recognition software. It may contain grammatical, syntax or spelling errors. Electronically signed by: Joseph Ndiaye M.D. 09/30/2017 9:54 AM Dictated Date/Time: 09/30/2017 9:53 AM
[2017-09-30 10:26] LABS: ALB/GLOB RATIO 0.8 (0.9-2); ALKALINE PHOSPHATASE 87 U/L (45-117); ALT/SGPT 20 U/L (12-78); BLOOD UREA NITROGEN 11 mg/dl (7-18); BUN/CREATININE RATIO 11.2 (10-20); CALCIUM 9.3 mg/dl (8.5-10.1); CARBON DIOXIDE 27 mmol/L (21-32); CHLORIDE 102 mmol/L (98-107); CREATININE 1.01 mg/dl (0.60-1.20); GLUCOSE 103 mg/dl (70-99); SODIUM 136 mmol/L (136-145)
[2017-09-30] MEDS ORDERED: OPTIRAY 320 IV PRN (11:00)
[2017-09-30 11:10] LABS: POTASSIUM 4.2 mmol/L (3.5-5.1)
--- NOTE | 2017-09-30 11:28 | DIAGNOSTIC IMAGING REPORT ---
(CHEST FOR PE) ANGIO WITH CT DOSE: 522.73 mGy.cm HISTORY: 61 years-old Female presents with acute chest pain and tachycardia TECHNIQUE: Multiple CTA images of the chest were obtained after the intravenous administration of 75 ml Optiray 320. Coronal and sagittal MIPS were obtained from the axial data set and were submitted for review. A dose lowering technique was utilized adhering to the principles of ALARA. COMPARISON: Chest radiograph of same day, CTA chest 09/01/2016. FINDINGS: CTA: Heart is mildly enlarged. The thoracic aorta demonstrates no aneurysm or dissection. Note is made of a bovine aortic arch. Imaged great vessels appear patent. There is tortuosity of the proximal left subclavian artery. Respiratory motion and contrast bolus timing mildly limits evaluation of the pulmonary arterial tree. The distal segmental and subsegmental branches are not well seen. No filling defects identified to suggest pulmonary thromboembolic disease. CT CHEST: Multinodular goiter with a 1.9 x 1.3 cm nodule of the left thyroid. No pathologic adenopathy about the chest identified. There is no pneumothorax or pleural effusion. Mild dependent subsegmental atelectasis. Additional scattered groundglass opacities of the bilateral lungs, notably within the lower lobes are also seen suggesting atelectasis. Mild bibasilar bronchial wall thickening, greatest at the level the left lung base. No suspicious pulmonary nodules or pulmonary masses identified. Central airways are patent. No acute abnormality of the imaged upper abdomen. Splenic calcification are noted in addition to hepatic calcifications which are nonspecific. Patient obesity noted. Bones appear intact. Degenerative changes of the spine are noted. IMPRESSION: 1. No acute intrathoracic abnormality identified. No acute aortic pathology or evidence of pulmonary thromboembolic disease. 2. Scattered bilateral groundglass opacities suggest atelectasis, greatest at the level of the lung bases. No lobar airspace consolidations to suggest pneumonia. 3. Mild cardiomegaly. The above report was generated using voice recognition software. It may contain grammatical, syntax or spelling errors. Electronically signed by: Nahum Candelaria M.D. 09/30/2017 11:27 AM Dictated Date/Time: 09/30/2017 11:20 AM
[2017-09-30 11:55] VITALS: O2SAT 100; Ht 154.9 cm; Wt 101.5 kg
[2017-09-30] MEDS ORDERED: ONDANSETRON INJ 2 MG/ML 2 ML VIAL IV PRN (12:30)
[2017-09-30] MEDS ORDERED: NITROGLYCERIN 0.4 MG SL PER TAB CHARGE SL PRN (12:30)
[2017-09-30] MEDS ORDERED: ACETAMINOPHEN 325 MG TAB PO PRN (12:30)
[2017-09-30] MEDS ORDERED: ALPRAZOLAM 0.5 MG TAB PO PRN (12:45)
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
[2017-09-30 14:40] VITALS: O2SAT 98
[2017-09-30] MEDS ORDERED: IV FLUIDS COMPLETED PRN (15:45)
--- NOTE | 2017-09-30 15:48 | DIAGNOSTIC IMAGING REPORT ---
BILATERAL LOWER EXTREMITY VENOUS DOPPLER HISTORY: elevated d. dimer COMPARISON STUDY: None. FINDINGS: There is normal compressibility, flow, and augmentation within the bilateral lower extremity deep venous systems. IMPRESSION: No DVT within the right or left lower extremity. Electronically signed by: Garo Marquez M.D. 09/30/2017 3:47 PM Dictated Date/Time: 09/30/2017 3:47 PM
--- NOTE | 2017-09-30 15:57 | DIAGNOSTIC IMAGING REPORT ---
THYROID ULTRASOUND HISTORY: f/u thyroid nodules, palpitations COMPARISON: Chest CTA 09/30/2017. Thyroid ultrasound 11/10/2009. FINDINGS: Right lobe: 5.0 x 2.2 x 1.8 cm. There are 3 nodules seen within the right thyroid lobe. Dominant nodule within the lower pole is heterogeneous and measures 2.3 x 2.1 x 1.2 cm. This is similar in appearance compared the prior study. This previously measured 1.9 x 1.6 x 0.9 cm. Additional nodules within the right lobe measure 1.2 x 0.7 x 0.6 cm and 9 x 8 x 5 mm. These also are seen within the lower pole. Left lobe: 5.1 x 2.0 x 1.9 cm. Dominant nodule measures 2.3 x 1.9 x 1.8 cm. This is isoechoic and solid. This previously measured 1.8 x 1.2 x 1.4 cm. There is no additional 9 x 5 mm upper pole nodule. Isthmus: 4 mm in thickness. There is a 1.3 x 1.3 x 0.7 cm solid nodule within the isthmus. This previously measured 9 mm. IMPRESSION: Slight increase in size of the nodules as described above compared to the 2010 examination.. Of note, the dominant nodules within the right and left lobe are previous biopsy. Electronically signed by: Garo Marquez M.D. 09/30/2017 3:56 PM Dictated Date/Time: 09/30/2017 3:48 PM
[2017-09-30 16:00] VITALS: BP 150/94; PULSE 92; TEMP 36.8; O2SAT 98
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
[2017-09-30] MEDS: ENOXAPARIN 40 MG/0.4 ML SYR SC SCH (16:54)
--- NOTE | 2017-09-30 17:02 | ECHOCARDIOGRAM REPORT ---
*NOTICE TO RECEIVING REPUBLICAN AGENCY This information is strictly Confidential and protected under [place] law. [place] law prohibits you from making any further disclosure of this information unless further disclosure is expressly permitted by the written consent of the person to whom it pertains or is authorized by law. A general authorization for the release of medical or other information is not sufficient for this purpose. Hospital accepts no responsibility if the information is made available to any other person, INCLUDING THE PATIENT. Interpretation Summary * Name: LAURENCE BUSCH Study Date: 09/30/2017 01:38 PM BP: 152/90 mmHg * Patient Location: .JANEY\S\[id number] HR: 82 * : 1955 (M/d/yyyy) Gender: Female Height: 61 in * Age: 61 yrs Ethnicity: AA Weight: 222 lb * Ordering Physician: Becki Quiles * Referring Physician: Self, Referred * Performed By: Chloe Sandra RCS * * Reason For Study: PALPITATIONS * BSA: 2.0 m2 * -- Conclusions -- * There is normal left ventricular wall thickness. * The left ventricular wall motion is normal. * The LV Ejection Fraction = 60-65%. * There is no significant valvular heart disease. Procedure Details * A complete two-dimensional transthoracic echocardiogram was performed (2D, M-mode, Doppler and color flow Doppler). * The study was technically difficult. * There were technical limitations due to patient'sbody habitus * A contrast injection of Definity was performed to improve assessment of LV function. * Contrast was injected into an intravenous site in the right arm. * One vial of Definity ultrasound contrast was diluted in normal saline to a total volume of 10 ml. A total of '2' ml of solution was administered during imaging. * Lot # [id number] of Definity utilized for procedure. * Expiration date OCT 21. * The attending nurse who injected the contrast agent was SHAILA Saucedo ED, RN. Left Ventricle * The left ventricle is normal in size. * There is normal left ventricular wall thickness. * Left ventricular systolic function is normal. * Ejection Fraction = 60-65%. * The left ventricular wall motion is normal. Right Ventricle * The right ventricle is normal size. * The right ventricular systolic function is normal as assessed by tricuspid annular plane systolic excursion (TAPSE) (normal >1.5 cm). Atria * The left atrial size is normal. * Right atrial size is normal. * There is no evidence of atrial septal defect, but resolution does not allow assessment for a patent foramen ovale. Mitral Valve * The mitral valve is normal. * There is no mitral valve stenosis. * Significant mitral regurgitation is absent. Tricuspid Valve * The tricuspid valve is normal. * There is no tricuspid stenosis. * Significant tricuspid regurgitation is absent. * Doppler findings do not suggest pulmonary hypertension. Aortic Valve * The aortic valve is trileaflet. * Aortic stenosis is absent. * There is no significant aortic regurgitation. Pulmonic Valve * The pulmonary valve is not well seen, but the Doppler examination is normal without significant regurgitation or stenosis. Great Vessels * The aortic root and proximal ascending aorta are normal sized. Pericardium/Pleural * There is no pericardial effusion. Great Vessels * Normal inferior vena cava diameter and respiratory variation suggests normal central venous pressure. Left Ventricular Diastolic Function * Grade I diastolic dysfunction, (abnormal relaxation pattern). MMode 2D Measurements and Calculations IVSd 0.97 cm IVSs 1.5 cm LVIDd 3.6 cm LVIDs 2.6 cm LVPWd 0.93 cm LVPWs 0.79 cm IVS/LVPW 1.0 FS 28.0 % EDV(Teich) 54.7 ml ESV(Teich) 24.6 ml EF(Teich) 55.1 % EDV(cubed) 46.9 ml ESV(cubed) 17.5 ml EF(cubed) 62.6 % % IVS thick 58.9 % % LVPW thick -14.50 % LV mass(C)d 99.9 grams LV mass(C)dI 50.6 grams/m\S\2 LV mass(C)s 85.4 grams LV mass(C)sI 43.2 grams/m\S\2 SV(Teich) 30.1 ml SI(Teich) 15.3 ml/m\S\2 SV(cubed) 29.4 ml SI(cubed) 14.9 ml/m\S\2 Ao root diam 2.8 cm Ao root area 6.3 cm\S\2 LA dimension 3.3 cm LA/Ao 1.2 LVOT diam 2.0 cm LVOT area 3.3 cm\S\2 LVAd ap4 28.3 cm\S\2 LVLd ap4 8.4 cm EDV(MOD-sp4) 77.2 ml EDV(sp4-el) 80.5 ml LVAs ap4 18.3 cm\S\2 LVLs ap4 6.8 cm ESV(MOD-sp4) 40.7 ml ESV(sp4-el) 42.0 ml EF(MOD-sp4) 47.4 % EF(sp4-el) 47.9 % LVAd ap2 30.7 cm\S\2 LVLd ap2 8.0 cm EDV(MOD-sp2) 94.0 ml EDV(sp2-el) 99.5 ml LVAs ap2 18.6 cm\S\2 LVLs ap2 7.4 cm ESV(MOD-sp2) 38.1 ml ESV(sp2-el) 39.6 ml EF(MOD-sp2) 59.4 % EF(sp2-el) 60.2 % LVLd %diff -5.05 % EDV(MOD-bp) 86.4 ml LVLs %diff 9.1 % ESV(MOD-bp) 41.3 ml EF(MOD-bp) 52.3 % SV(MOD-sp4) 36.6 ml SI(MOD-sp4) 18.5 ml/m\S\2 SV(MOD-sp2) 55.8 ml SI(MOD-sp2) 28.3 ml/m\S\2 SV(MOD-bp) 45.2 ml SI(MOD-bp) 22.9 ml/m\S\2 SV(sp4-el) 38.5 ml SI(sp4-el) 19.5 ml/m\S\2 SV(sp2-el) 59.9 ml SI(sp2-el) 30.3 ml/m\S\2 Doppler Measurements and Calculations MV E max james 86.4 cm/sec MV A max james 106.8 cm/sec MV E/A 0.81 MV P1/2t max james 88.0 cm/sec MV P1/2t 62.9 msec MVA(P1/2t) 3.5 cm\S\2 MV dec slope 410.0 cm/sec\S\2 MV dec time 0.17 sec Ao V2 max 146.7 cm/sec Ao max PG 8.6 mmHg Ao max PG (full) 4.4 mmHg MARQUEZ(V,A) 2.3 cm\S\2 MARQUEZ(V,D) 2.3 cm\S\2 LV V1 max PG 4.2 mmHg LV V1 max 103.1 cm/sec PA V2 max 78.5 cm/sec PA max PG 2.5 mmHg TR max james 244.2 cm/sec
[2017-09-30 19:02] VITALS: BP 142/87; PULSE 91; TEMP 36.4; O2SAT 96
[2017-09-30 23:39] VITALS: BP 134/90; PULSE 89; TEMP 36.7; O2SAT 96
[2017-10-01 03:14] VITALS: BP 135/86; PULSE 90; TEMP 36.6; O2SAT 91
[2017-10-01 05:49] LABS: HEMATOCRIT 36.9 % (37-47); MEAN CORPUSCULAR HEMOGLOBIN 27.8 pg (25-34); MEAN PLATELET VOLUME 10.4 fL (7.4-10.4); PLATELET COUNT 237 K/uL (130-400); RED BLOOD COUNT 4.24 M/uL (4.2-5.4); WHITE BLOOD COUNT 5.55 K/uL (4.8-10.8)
[2017-10-01 06:23] LABS: BUN/CREATININE RATIO 14.1 (10-20); CALCIUM 8.9 mg/dl (8.5-10.1); CREATININE 0.91 mg/dl (0.60-1.20); POTASSIUM 3.7 mmol/L (3.5-5.1)
[2017-10-01 07:51] VITALS: BP 145/80; PULSE 79; TEMP 36.7; O2SAT 97
[2017-10-01] MEDS ORDERED: PANTOprazole SOD 40 MG TAB PO SCH (09:00)
--- NOTE | 2017-10-01 10:16 | Cardiology Consultation ---
Cardiology Consultation Date of Consultation: Oct 01, 2017 Requesting Physician: Etta Attending Prepress Technician: Josette (Joseph Kumar PA-C) History of Present Illness Ms. Pulido is a 61 year old female who is being seen at the request of Ms. Becki BATISTA and Dr. Andres Guajardo MD. Reason for consultation is palpitations. Ms. Pulido reports palpitations beginning on September 11, 2017, previously experiencing similar symptoms when with her youngest daughter. She describes tachypalpitations, "something physical, not like my anxiety." Symptoms have an abrupt onset and "remind me of when they did that chemical stress test, beating fast and hard." Symptoms are precipitated by indigestion then are associated with mild shortness of breath and chest heaviness, occurring without rhyme or reason and resolving spontaneously. Duration: ~15 minutes. She feels exhausted after the episodes. Patient denies prior cardiac history other than being told of a heart murmur when with her first child. She denies history of ND, CAD, CHF, arrhythmias, rheumatic fever, or scarlet fever. (Joseph Kumar PA-C) Past Medical/Surgical History Problem List: Generalized anxiety Depression GERD Partial hysterectomy, 01/1990 Breast biopsy, benign Thyroid biopsy ~2009 Arthroscopic knee surgery x 3 x 2. Arthroscopic left shoulder surgery, April 2017 (Joseph Kumar PA-C) Family History Family History: Mother at 73 with lung cancer. Father with CHF at 80. Nine siblings. Multiple family members with hypertension and diabetes mellitus. One sister young with renal cancer. Two sisters with CAD, both status post CABG. Brother with atrial fibrillation. (Joseph Kumar PA-C) Diabetes mellitus BROTHER SISTER SISTER BROTHER FH: CHF (congestive heart failure) FATHER FH: atrial fibrillation BROTHER FH: lung cancer MOTHER Heart disease SISTER SISTER (Julian Finch,Ana.O.) Social History Social History: Reformed smoker. Rare alcohol. Denies illegal drug use. on November 07, 2006. Employment: [employer]. Originally from [place]. Three children, 7 grandchildren. (Joseph Kumar PA-C) Review Of Systems General: No fevers or chills. No night sweats. No abrupt weight changes. HEENT: Glasses. Thyroid nodules. Cardiovascular: See above. Chronic dyspnea on exertion. No orthopnea or PND. No significant edema. No syncope. Pulmonary: No cough. No hemoptysis. Gastrointestinal: Enlarged liver. ? Fatty infiltration. GERD, on omeprazole. Previously prescribed ranitidine without much benefit. No nausea, vomiting, or diarrhea. No melena or hematochezia. Skin: No rash. Musculoskeletal: See above. Neurological: Denies history of TIA, CVA, or seizures Complete review of systems is as stated above, negative, or noncontributory. (Joseph Kumar PA-C) Allergies Coded Allergies: Oxycodone (Verified Adverse Reaction, Intermediate, MAKES ME VERY SICK, ) Ketorolac Tromethamine (Verified Adverse Reaction, Mild, ANXIETY, 09/30/17 ) Aspirin (Verified Adverse Reaction, Unknown, Pt has GERD, 09/30/17) Ibuprofen (Verified Adverse Reaction, Unknown, Pt has GERD, 09/30/17) Lorazepam (Verified Adverse Reaction, Unknown, IV OK,NOT PO-ANXIETY, 09/30) CAN HAVE IV..JUST NOT PO NSAIDs (Verified Adverse Reaction, Unknown, PT HAS GERD, 09/30/17) Medications Reported Home Medications Medications Dose Route/Sig Max Daily Dose Days Date Category Proair Respiclick (Albuterol Sulfate) 108 Mcg/Act Aer 2 Puff INH Q4 PRN 08/19/17 Reported Prilosec (Omeprazole) 20 Mg Capcr 40 Mg PO DAILY 08/19/17 Reported Promethazine HCl 25 Mg Tab 25 Mg PO Q6 PRN 12/27/16 Reported Zantac (Ranitidine HCl) 150 Mg Tab 150 Mg PO BID PRN 03/15/11 Reported Xanax (Alprazolam) 0.5 Mg Tab 0.5 Mg PO DAILY PRN 07/03/09 Reported (Joseph Kumar PA-C) Physical Exam Vital Signs (Last 8hrs): Last 8 Hrs Date Time Temp Pulse Resp B/P (MAP) Pulse Ox O2 Delivery O2 Flow Rate FiO2 10/01/17 07:51 36.7 79 16 145/80 (101) 97 Room Air 10/01/17 04:00 Room Air 10/01/17 03:14 36.6 90 16 135/86 (102) 91 Room Air General Appearance: Alert and Oriented x3. NAD. HEENT: Normocephalic Atraumatic. PER, EOMI, conjunctiva and sclera clear Neck: Supple. No carotid bruits noted. No JVD. No HJD. Respiratory: Breath sounds clear to auscultation bilaterally. No w/r/r. Cardiovascular: RRR, 96 bpm. No murmurs, rubs, gallops. PMI non displaced. Abdomen: Normal bowel sounds, soft nontender. no abdominal bruits. Extremities: No edema. No clubbing. No cyanosis. Distal pulses 2/4 bilaterally. Neuro: No focal deficits. Psychiatric: Normal affect. (Joseph Kumar PA-C) Data Last 24 Hours Test 09/30/17 10:44 09/30/17 15:00 09/30/17 16:15 09/30/17 21:00 Potassium Level 4.2 mmol/L Magnesium Level 2.0 mg/dl Aspartate Amino Transf (AST/SGOT) 11 U/L Total Creatine Kinase 59 U/L Creatine Kinase MB Ratio Creatine Kinase MB < 0.5 ng/ml < 0.5 ng/ml Troponin I < 0.015 ng/ml < 0.015 ng/ml Test 10/01/17 05:28 White Blood Count 5.55 K/uL Red Blood Count 4.24 M/uL Hemoglobin 11.8 g/dL Hematocrit 36.9 % Mean Corpuscular Volume 87.0 fL Mean Corpuscular Hemoglobin 27.8 pg Mean Corpuscular Hemoglobin Concent 32.0 g/dl RDW Standard Deviation 43.1 fL RDW Coefficient of Variation 13.5 % Platelet Count 237 K/uL Mean Platelet Volume 10.4 fL Sodium Level 137 mmol/L Potassium Level 3.7 mmol/L Chloride Level 104 mmol/L Carbon Dioxide Level 30 mmol/L Anion Gap 3.0 mmol/L Blood Urea Nitrogen 13 mg/dl Creatinine 0.91 mg/dl Est Creatinine Clear Calc Drug Dose 72.5 ml/min Estimated GFR () 80.0 Estimated GFR (Non- 69.1 BUN/Creatinine Ratio 14.1 Random Glucose 118 mg/dl Calcium Level 8.9 mg/dl June 13, 2017 DSE ([facility], Dr. Campos): Normal pharmacologic stress echocardiogram. No echocardiographic or ECG evidence of myocardial ischemia having achieved heart rate adequate for diagnostic purposes Holter Monitor (September 2017, [facility], Dr. Campos): The predominant rhythm is normal sinus with an average heart rate of 96 beats per minute. The heart rate ranged from 69 to 127 beats per minute. There were rare premature atrial contractions and rare PVCs. No significant tachy- or bradyarrhythmias. No symptoms were reported by the patient. Summary: Benign Holter monitor with predominant rhythm being normal sinus. Admission CXR: Negative chest. Chest CT (as per Dr. Candelaria): No acute intrathoracic abnormality identified. No acute aortic pathology or evidence of pulmonary thromboembolic disease. Scattered bilateral ground glass opacities suggest atelectasis, greatest at the level of the lung bases. No lobar airspace consolidations to suggest pneumonia. Mild cardiomegaly. Venous Duplex: No DVT within the right or left lower extremity Thyroid Ultrasound ([facility], Dr. Marquez): Slight increase in size of the nodules as described above compared to the 2010 examination.. Of note, the dominant nodules within the right and left lobe are previous biopsy EKG dated and timed 30-SEP-2017 @ 09:03:43: Normal sinus rhythm. Minimal voltage criteria for LVH, may be normal variant When compared with ECG of 20-SEP-2017 08:26, no significant change was found. EKG dated and timed 01-OCT-2017 @ 07:01:50: Normal sinus rhythm. Minimal voltage criteria for LVH, may be normal variant When compared with ECG of 30-SEP-2017 09:03, no significant change was found Telemetry: Currently sinus at 94 bpm. Intermittent sinus tachycardia. No SVT, PAF, or atrial flutter. No bradycardia. No pauses. September 30, 2017 TTE Interpretation Summary ([facility], Dr. Finch): There is normal left ventricular wall thickness. The left ventricular wall motion is normal. The LV Ejection Fraction = 60-65%. There is no significant valvular heart disease. (Joseph Kumar PA-C) Assessment & Plan 61 year old female admitted for further evaluation and treatment of tachypalpitations as detailed above. Workup benign thus far (see above) ? Secondary to anxiety, sinus tachycardia, or other RECOMMENDATIONS Start Toprol XL 25 mg/day. Benefits, use and risks explained 30-day Event Monitor to capture and document symptoms. Move the previously scheduled outpatient cardiology consultation until after the event monitor is completed. (Joseph Kumar PA-C) CARDIOLOGY ATTENDING ADDENDUM: The patient was seen and personally examined. Agree with Joseph Kumar PA-C's findings and plans as documented above with additions as noted above. S: feeling better Exam: Reg rhythm No edema Impression: palpitations, perhaps due to increased cardiac awareness, with elevated resting HR in the 95 bpm range.Anxiety may be a contributing factor. Plan: as noted. Start low dose metoprolol. outpt telemetry monitor. Follow up as outpt. (Julian Finch D.O.)
[2017-10-01] MEDS ORDERED: METOPROLOL SUCC 25MG EXT REL TAB PO SCH (10:30)
[2017-10-01 11:57] VITALS: BP 160/72; PULSE 91; TEMP 36.5; O2SAT 95
--- NOTE | 2017-10-01 15:12 | Progress Note ---
Medicine Progress Note Date & Time of Visit: Oct 01, 2017 at 15:12. Subjective patient seen resting in bed, comfortable in good spirits no recurrence of palpitations denies chest pain, dizziness, nausea denies other symptoms states she is ready and would like to be discharged today Objective Last 8 Hrs Date Time Temp Pulse Resp B/P (MAP) Pulse Ox O2 Delivery O2 Flow Rate FiO2 10/01/17 12:00 Room Air 10/01/17 11:57 36.5 91 16 160/72 (101) 95 Room Air 10/01/17 08:00 Room Air 10/01/17 07:51 36.7 79 16 145/80 (101) 97 Room Air Physical Exam: General- oriented x 3, not in distress speaks in sentences with no effort Head- atraumatic Eyes- EOMI, anicteric ENT- oropharynx clear Neck- supple, no JVD Lungs- clear to auscultation bilaterally Heart- regular rhythm; no murmur, normal rate Abdomen- normal bowel sounds, soft, nontender Extremities- no pretibial edema, no calf tenderness; peripheral pulses intact Neuro- alert, oriented x 3; no gross focal deficits Skin- warm & dry Laboratory Results: Last 24 Hours Test 09/30/17 16:15 09/30/17 21:00 10/01/17 05:28 Creatine Kinase MB < 0.5 ng/ml < 0.5 ng/ml Troponin I < 0.015 ng/ml < 0.015 ng/ml Creatine Kinase MB Ratio White Blood Count 5.55 K/uL Red Blood Count 4.24 M/uL Hemoglobin 11.8 g/dL Hematocrit 36.9 % Mean Corpuscular Volume 87.0 fL Mean Corpuscular Hemoglobin 27.8 pg Mean Corpuscular Hemoglobin Concent 32.0 g/dl RDW Standard Deviation 43.1 fL RDW Coefficient of Variation 13.5 % Platelet Count 237 K/uL Mean Platelet Volume 10.4 fL Sodium Level 137 mmol/L Potassium Level 3.7 mmol/L Chloride Level 104 mmol/L Carbon Dioxide Level 30 mmol/L Anion Gap 3.0 mmol/L Blood Urea Nitrogen 13 mg/dl Creatinine 0.91 mg/dl Est Creatinine Clear Calc Drug Dose 72.5 ml/min Estimated GFR () 80.0 Estimated GFR (Non- 69.1 BUN/Creatinine Ratio 14.1 Random Glucose 118 mg/dl Calcium Level 8.9 mg/dl Assessment & Plan PALPITATIONS - admit to tele - patient presenting with palpitations and self reported pulse of 150, symptoms resolved upon arrival to the ED - patient has been having episodes of palpitations for the past few weeks - work up has included - 24 hour Holter that was unremarkable, lab tests including TSH and T4 that were normal as well - noted dobutamine stress test 06/2017 that was negative for ischemia - cardiac markers negative echo: * -- Conclusions -- * There is normal left ventricular wall thickness. * The left ventricular wall motion is normal. * The LV Ejection Fraction = 60-65%. * There is no significant valvular heart disease. - Cardiology consulted- MAN Kumar and Dr. Finch - palpitations felt to be from sinus tachycardia, vs. anxiety, vs. increased cardiac awareness - Metoprolol XL 25mg daily started outpatient 30 day Event monitor to be set up - ff up with Structural Architect as scheduled GOITER, THYROID NODULE - seen on CT chest - Multinodular goiter with a 1.9 x 1.3 cm nodule of the left thyroid. - TSH normal - continue outpatient follow up ELEVATED D DIMER - D dimer 1190 CT chest no PE Leg US no DVT - age appropriate cancer screening as outpatient GERD - continue PPI DISPO d/c home ff up with PCP in 3-5 days ff up with Structural Architect as scheduled Current Inpatient Medications: Current Inpatient Medications Medications (Trade) Dose Ordered Sig/Chela Route Start Time Stop Time Status Last Admin Dose Admin Ioversol (Optiray 320) 100 ml UD PRN IV 09/30/17 11:00 10/04/17 10:59 Enoxaparin Sodium (Lovenox Inj) 40 mg Q24H SC 09/30/17 16:00 10/30/17 15:59 09/30/17 16:54 40 MG Acetaminophen (Tylenol Tab) 650 mg Q4H PRN PO 09/30/17 12:30 10/30/17 12:29 Ondansetron HCl (Zofran Inj) 4 mg Q6H PRN IV 09/30/17 12:30 10/30/17 12:29 Nitroglycerin (Nitrostat Tab) 0.4 mg UD PRN SL 09/30/17 12:30 10/30/17 12:29 Alprazolam (Xanax Tab) 0.5 mg DAILY PRN PO 09/30/17 12:45 10/30/17 12:44 09/30/17 19:23 0.5 MG Pantoprazole Sodium (Protonix Tab) 40 mg DAILY PO 10/01/17 09:00 10/31/17 08:59 Miscellaneous (Iv Fluids Completed) 1 ea PRN PRN N/A 09/30/17 15:45 09/30/18 15:44 Metoprolol Succinate (Toprol Xl Tab) 25 mg QAM PO 10/01/17 10:30 10/31/17 10:29 10/01/17 10:48 25 MG
[2017-10-01] MEDS ORDERED: TPRSR25 PO (15:23)
[2017-10-01] MEDS: ENOXAPARIN 40 MG/0.4 ML SYR SC SCH (15:25)
[2017-10-01 15:28] VITALS: BP 126/92; PULSE 80; TEMP 36.8; O2SAT 97
--- NOTE | 2017-10-01 15:28 | Discharge Instructions ---
Discharge Instructions Date of Service Oct 01, 2017. Admission Reason for Admission: Palpitations Discharge Discharge Diagnosis / Problem: Palpitations Discharge Goals Goal(s): Diagnostic testing, Therapeutic intervention Activity Recommendations Activity Limitations: as noted below (no heavy exertion until re-evaluated by Primary Care Physician) Lifting Limitations: until after follow-up appointment Exercise/Sports Limitations: until after follow-up appointment . Instructions / Follow-Up Instructions / Follow-Up Please review your new medication and follow instructions carefully. Drink plenty of fluids. Call Primary Care Physician or return to ER immediately if with recurrence of symptoms, weakness, dizziness/lightheadedness. Follow up with Dr. Carmen Copeland on Saturday at 10:45am. Follow up with Branch Billing Payroll Clerk Dr. Julian Finch as scheduled. Tel. no. [phone] Current Hospital Diet Patient's current hospital diet: AHA Diet (Heart Healthy) Discharge Diet Recommended Diet: AHA Diet (Heart Healthy) Procedures Procedures Performed: Ct scan of the Chest, Ultrasound of the legs, Echocardiogram Pending Studies Studies pending at discharge: yes List of pending studies: 30 Day Event Monitor c/o Branch Billing Payroll Clerk Medical Emergencies . Who to Call and When: Medical Emergencies: If at any time you feel your situation is an emergency, please call 911 immediately. . Non-Emergent Contact Non-Emergency issues call your: Primary Care Provider, Branch Billing Payroll Clerk Call Non-Emergent contact if: you have a fever, you have any medication questions . . "Provider Documentation" section prepared by Saturnino Viveros. . VTE Core Measure Inpt VTE Proph given/why not?: Enoxaparin (Lovenox)SQ
--- NOTE | 2017-10-01 15:36 | Discharge Summary ---
Discharge Summary Date of Service Oct 01, 2017. Discharge Summary Admission Date: Sep 30, 2017 at 12:27 Discharge Date: Oct 01, 2017 Discharge Disposition: Home Principal Diagnosis: PALPITATIONS Secondary Diagnoses/Problems: Please refer to hospital course below. Procedures: ECHOCARDIOGRAM: * -- Conclusions -- * There is normal left ventricular wall thickness. * The left ventricular wall motion is normal. * The LV Ejection Fraction = 60-65%. * There is no significant valvular heart disease. (CHEST FOR PE) ANGIO WITH CT DOSE: 522.73 mGy.cm HISTORY: 61 years-old Female presents with acute chest pain and tachycardia TECHNIQUE: Multiple CTA images of the chest were obtained after the intravenous administration of 75 ml Optiray 320. Coronal and sagittal MIPS were obtained from the axial data set and were submitted for review. A dose lowering technique was utilized adhering to the principles of ALARA. COMPARISON: Chest radiograph of same day, CTA chest 09/01/2016. FINDINGS: CTA: Heart is mildly enlarged. The thoracic aorta demonstrates no aneurysm or dissection. Note is made of a bovine aortic arch. Imaged great vessels appear patent. There is tortuosity of the proximal left subclavian artery. Respiratory motion and contrast bolus timing mildly limits evaluation of the pulmonary arterial tree. The distal segmental and subsegmental branches are not well seen. No filling defects identified to suggest pulmonary thromboembolic disease. CT CHEST: Multinodular goiter with a 1.9 x 1.3 cm nodule of the left thyroid. No pathologic adenopathy about the chest identified. There is no pneumothorax or pleural effusion. Mild dependent subsegmental atelectasis. Additional scattered groundglass opacities of the bilateral lungs, notably within the lower lobes are also seen suggesting atelectasis. Mild bibasilar bronchial wall thickening, greatest at the level the left lung base. No suspicious pulmonary nodules or pulmonary masses identified. Central airways are patent. No acute abnormality of the imaged upper abdomen. Splenic calcification are noted in addition to hepatic calcifications which are nonspecific. Patient obesity noted. Bones appear intact. Degenerative changes of the spine are noted. IMPRESSION: 1. No acute intrathoracic abnormality identified. No acute aortic pathology or evidence of pulmonary thromboembolic disease. 2. Scattered bilateral groundglass opacities suggest atelectasis, greatest at the level of the lung bases. No lobar airspace consolidations to suggest pneumonia. 3. Mild cardiomegaly. THYROID ULTRASOUND HISTORY: f/u thyroid nodules, palpitations COMPARISON: Chest CTA 09/30/2017. Thyroid ultrasound 11/10/2009. FINDINGS: Right lobe: 5.0 x 2.2 x 1.8 cm. There are 3 nodules seen within the right thyroid lobe. Dominant nodule within the lower pole is heterogeneous and measures 2.3 x 2.1 x 1.2 cm. This is similar in appearance compared the prior study. This previously measured 1.9 x 1.6 x 0.9 cm. Additional nodules within the right lobe measure 1.2 x 0.7 x 0.6 cm and 9 x 8 x 5 mm. These also are seen within the lower pole. Left lobe: 5.1 x 2.0 x 1.9 cm. Dominant nodule measures 2.3 x 1.9 x 1.8 cm. This is isoechoic and solid. This previously measured 1.8 x 1.2 x 1.4 cm. There is no additional 9 x 5 mm upper pole nodule. Isthmus: 4 mm in thickness. There is a 1.3 x 1.3 x 0.7 cm solid nodule within the isthmus. This previously measured 9 mm. IMPRESSION: Slight increase in size of the nodules as described above compared to the 2010 examination.. Of note, the dominant nodules within the right and left lobe are previous biopsy. BILATERAL LOWER EXTREMITY VENOUS DOPPLER HISTORY: elevated d. dimer COMPARISON STUDY: None. FINDINGS: There is normal compressibility, flow, and augmentation within the bilateral lower extremity deep venous systems. IMPRESSION: No DVT within the right or left lower extremity. Consultations: [facility] Dr. Finch Pending Studies/Follow-Up: Please refer to hospital course below. Medication Reconciliation New Medications: Metoprolol Succinate (Metoprolol Succinate ER) 25 Mg Tabcr 25 MG PO QAM for 30 Days, #30 TABS 2 Refills Continued Medications: Albuterol Sulfate (Proair Respiclick) 108 Mcg/Act Aer 2 PUFF INH Q4 PRN for Shortness of Breath Alprazolam (Xanax) 0.5 Mg Tab 0.5 MG PO DAILY PRN for Anxiety Omeprazole (Prilosec) 20 Mg Capcr 40 MG PO DAILY Promethazine HCl (Promethazine HCl) 25 Mg Tab 25 MG PO Q6 PRN for Nausea Ranitidine (Zantac) 150 Mg Tab 150 MG PO BID PRN for Dyspepsia Admission Information HPI (per Admitting provider): 61 year old female who presents to the ED with palpitations. Patient reports she has been getting episodes of palpitations for the past few weeks. She has been evaluated in the ED twice and also by her PCP. No source for the palpitations has been identified. She had a 24 hour holter placed on 09/20 that was negative. She was also admitted 06/13/17 for chest pain and had a negative dobutamine stress test. Thyroid studies have been noted to be normal but patient reports she has a history of thyroid nodules so her PCP ordered an US that has not been completed yet. Patient reports that each episode of her palpitations have occurred at rest and symptoms have resolved on their own after about 15 minutes. Today patient reports she was driving to work when the palpitations started. She reports she will get a feeling of indigestion before it starts. She took her pulse and reports it was 150. She reports associated chest tightness and shortness of breath with the palpitations. Today she felt very lightheaded which she has not felt in the past. She denies any syncopal events. No associated diaphoresis or nausea. Symptoms resolved on their own after about 15 minutes. She feels extremely fatigued after these episodes. Patient reports that she has been told that her symptoms could be from anxiety however she reports that she does not feel anxious when the palpitations are occurring. She reports she otherwise has been feeling well recently. No fevers or chills. She denies abdominal pain, vomiting, or diarrhea. No urinary symptoms. In the ED, patient's work up is unremarkable. Physical Exam (per Admitting): General Appearance: WD/WN, no apparent distress Head: normocephalic, atraumatic Eyes: normal inspection, EOMI, sclerae normal ENT: hearing grossly normal, + pertinent finding (mucous membranes moist) Neck: supple, no JVD, trachea midline Respiratory/Chest: lungs clear, normal breath sounds, no respiratory distress Cardiovascular: regular rate, rhythm, no edema, normal peripheral pulses Abdomen/GI: normal bowel sounds, non tender, soft, no organomegaly Extremities/Musculoskelatal: normal inspection, no calf tenderness, normal capillary refill Neurologic/Psych: no motor/sensory deficits, alert, normal mood/affect, oriented x 3 Skin: normal color, warm/dry Hospital Course PALPITATIONS - patient presenting with palpitations and self reported pulse of 150, symptoms resolved upon arrival to the ED - patient has been having episodes of palpitations for the past few weeks - work up has included - 24 hour Holter that was unremarkable, lab tests including TSH and T4 that were normal as well - noted dobutamine stress test 06/2017 that was negative for ischemia - cardiac markers negative echo: * -- Conclusions -- * There is normal left ventricular wall thickness. * The left ventricular wall motion is normal. * The LV Ejection Fraction = 60-65%. * There is no significant valvular heart disease. - Cardiology consulted- MAN Kumar and Dr. Finch - palpitations felt to be from sinus tachycardia, vs. anxiety, vs. increased cardiac awareness - Metoprolol XL 25mg daily started outpatient 30 day Event monitor to be set up - ff up with [facility] as scheduled GOITER, THYROID NODULE - seen on CT chest - Multinodular goiter with a 1.9 x 1.3 cm nodule of the left thyroid. - TSH normal - Thyroid US: Slight increase in size of the nodules as described above compared to the 2010 examination.. Of note, the dominant nodules within the right and left lobe are previous biopsy. - continue further work up as outpatient ELEVATED D DIMER - D dimer 1190 CT chest no PE Leg US no DVT - age appropriate cancer screening as outpatient GERD - continue PPI DISPO d/c home ff up with PCP in 3-5 days ff up with [facility] as scheduled Total time spent on discharge = 35 minutes This includes examination of the patient, discharge planning, medication reconciliation, and communication with other providers. Discharge Instructions Discharge Instructions Date of Service Oct 01, 2017. Admission Reason for Admission: Palpitations Discharge Discharge Diagnosis / Problem: Palpitations Discharge Goals Goal(s): Diagnostic testing, Therapeutic intervention Activity Recommendations Activity Limitations: as noted below (no heavy exertion until re-evaluated by Primary Care Physician) Lifting Limitations: until after follow-up appointment Exercise/Sports Limitations: until after follow-up appointment . Instructions / Follow-Up Instructions / Follow-Up Please review your new medication and follow instructions carefully. Drink plenty of fluids. Call Primary Care Physician or return to ER immediately if with recurrence of symptoms, weakness, dizziness/lightheadedness. Follow up with Dr. Carmen Copeland on Saturday at 10:45am. Follow up with [facility] Dr. Julian Finch as scheduled. Tel. no. Current Hospital Diet Patient's current hospital diet: AHA Diet (Heart Healthy) Discharge Diet Recommended Diet: AHA Diet (Heart Healthy) Procedures Procedures Performed: Ct scan of the Chest, Ultrasound of the legs, Echocardiogram Pending Studies Studies pending at discharge: yes List of pending studies: 30 Day Event Monitor c/o [facility] Medical Emergencies . Who to Call and When: Medical Emergencies: If at any time you feel your situation is an emergency, please call 911 immediately. . Non-Emergent Contact Non-Emergency issues call your: Primary Care Provider, [facility] Call Non-Emergent contact if: you have a fever, you have any medication questions . . "Provider Documentation" section prepared by Saturnino Viveros. . VTE Core Measure Inpt VTE Proph given/why not?: Enoxaparin (Lovenox)SQ
[2017-10-01 16:28] VITALS: BP 126/92; PULSE 80; TEMP 36.8; O2SAT 97
== END 2017-10-01 16:45 | disposition home or self-care (01) ==
LOC: C.EDB 08:54 → C.2E 12:27 → ENRESERV 13:04 → CMPBEDREQ 13:15
PROVIDERS: ADMIT Internal Medicine; ATTEND Internal Medicine
DX: R00.2 Palpitations (principal); K21.9 Gastro-esophageal reflux disease without esophagitis; E04.9 Nontoxic goiter, unspecified; F32.9 Major depressive disorder, single episode, unspecified; Z90.710 Acquired absence of both cervix and uterus; Z87.891 Personal history of nicotine dependence; Z80.2 Family history of malignant neoplasm of other respiratory and intrathoracic organs; Z82.49 Family history of ischemic heart disease and other diseases of the circulatory system; Z83.3 Family history of diabetes mellitus; Z80.51 Family history of malignant neoplasm of kidney

== ENCOUNTER 2017-10-07 08:46 | Emergency (ER) | payer OTHER ==
[~2017-10-07] VITALS: Ht 154.9 cm; Wt 100.6 kg
[~2017-10-07 08:46] MED LIST changes: +TPRSR25 PO
[2017-10-07 08:48] VITALS: TEMP 36.7; Ht 154.9 cm; Wt 100.6 kg
[2017-10-07 09:33] LABS: BASO % 0.2 %; BASO ABS # 0.01 K/uL (0-0.2); COMPLETE YES; EOS % 1.1 %; HEMATOCRIT 40.7 % (37-47); IG% 0.2 %; LYMPH % 16.3 %; LYMPH ABS # 1.01 K/uL (1.2-3.4); MEAN CORPUSCULAR HEMOGLOBIN 28.4 pg (25-34); MEAN CORPUSCULAR HGB CONC 32.7 g/dl (32-36); MEAN PLATELET VOLUME 10.6 fL (7.4-10.4); MONO % 3.1 %; NEUT % 79.1 %; PLATELET COUNT 258 K/uL (130-400); RED BLOOD COUNT 4.68 M/uL (4.2-5.4); WHITE BLOOD COUNT 6.19 K/uL (4.8-10.8)
[2017-10-07] MEDS ORDERED: METOPROLOL TARTRATE 25 MG TAB PO STA (09:38)
--- NOTE | 2017-10-07 09:42 | DIAGNOSTIC IMAGING REPORT ---
CHEST ONE VIEW PORTABLE CLINICAL HISTORY: Chest pain and dizziness. COMPARISON STUDY: Chest radiograph and chest CT September 30, 2017. FINDINGS: No pneumothorax or pleural effusion is present. There is no evidence of pulmonary edema. No consolidation is identified. Cardiomediastinal silhouette is stable. IMPRESSION: No acute cardiopulmonary findings. Electronically signed by: Aguila White M.D. 10/07/2017 9:40 AM Dictated Date/Time: 10/07/2017 9:39 AM
[2017-10-07 09:51] LABS: ALT/SGPT 19 U/L (12-78); BLOOD UREA NITROGEN 13 mg/dl (7-18); BUN/CREATININE RATIO 13.8 (10-20); CALCIUM 9.5 mg/dl (8.5-10.1); CARBON DIOXIDE 28 mmol/L (21-32); CHLORIDE 103 mmol/L (98-107); CREATININE 0.94 mg/dl (0.60-1.20); GLUCOSE 102 mg/dl (70-99); POTASSIUM 3.9 mmol/L (3.5-5.1); SODIUM 139 mmol/L (136-145)
[2017-10-07] MEDS ORDERED: METOPROLOL TARTRATE 50 MG TAB ONE (09:52)
[2017-10-07 09:56] LABS: ALKALINE PHOSPHATASE 83 U/L (45-117); AST/SGOT 16 U/L (15-37)
[2017-10-07] MEDS ORDERED: TPRSR/25 PO (10:38)
[2017-10-07] MEDS ORDERED: PROM12.57 PO (10:38)
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
[2017-10-07 11:07] VITALS: BP 119/78; PULSE 95; O2SAT 98
== END 2017-10-07 11:08 | disposition home or self-care (01) ==
LOC: C.EDB 08:47 → C.EDA 11:08
DX: R00.0 Tachycardia, unspecified (principal); R03.0 Elevated blood-pressure reading, without diagnosis of hypertension; K21.9 Gastro-esophageal reflux disease without esophagitis; Z83.3 Family history of diabetes mellitus; Z82.49 Family history of ischemic heart disease and other diseases of the circulatory system; Z80.1 Family history of malignant neoplasm of trachea, bronchus and lung

== ENCOUNTER 2017-12-03 00:40 | Emergency (ER) | payer OTHER ==
[~2017-12-03] VITALS: Ht 154.9 cm; Wt 101.5 kg
[~2017-12-03 00:40] MED LIST changes: +PROM12.57 PO; +TPRSR/25 PO
[2017-12-03 00:48] VITALS: Ht 154.9 cm; Wt 101.5 kg
[2017-12-03] MEDS ORDERED: METO25TA3 PO (01:13)
[2017-12-03] MEDS ORDERED: ALUMINUM/MAGNESIUM SUSP 30 ML UDC PO STA (01:46)
[2017-12-03] MEDS ORDERED: LIDOCAINE HCL 2% VISC SOLN 20 ML UDC PO STA (01:46)
[2017-12-03] MEDS ORDERED: LIDOCAINE HCL 2% VISC SOLN 20 ML UDC ONE (01:49)
[2017-12-03] MEDS ORDERED: ALUMINUM/MAGNESIUM SUSP 30 ML UDC ONE (01:49)
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
[2017-12-03] MEDS ORDERED: NXM/40 PO (02:24)
[2017-12-03 02:34] VITALS: BP 130/74; PULSE 88; O2SAT 97
== END 2017-12-03 02:35 | disposition home or self-care (01) ==
LOC: EDBD 00:40 → C.EDB 00:41
DX: K44.9 Diaphragmatic hernia without obstruction or gangrene (principal); K21.0 Gastro-esophageal reflux disease with esophagitis; R06.02 Shortness of breath; R42 Dizziness and giddiness; Z90.711 Acquired absence of uterus with remaining cervical stump; Z98.891 History of uterine scar from previous surgery; Z83.3 Family history of diabetes mellitus; Z82.49 Family history of ischemic heart disease and other diseases of the circulatory system; Z80.1 Family history of malignant neoplasm of trachea, bronchus and lung; Z79.899 Other long term (current) drug therapy

== ENCOUNTER → 2017-12-16 | Outpatient (CLI) | payer OTHER ==
[~2017-12-16] MED LIST changes: +METO25TA3 PO; +NXM/40 PO; -PROM12.57 PO; +RANI150T85 PO; -TPRSR/25 PO; -TPRSR25 PO; -ZNTT/150 PO
--- NOTE | 2017-12-16 09:34 | DIAGNOSTIC IMAGING REPORT ---
(BARIUM SWALLOW) ESOPHAGUS CLINICAL HISTORY: Vomiting. Dysphagia. COMPARISON STUDY: None. FLUOROSCOPY TIME: 1.6 minutes. FINDINGS: 22 fluoroscopic images were obtained. No esophageal mass or stricture was identified. 13 mm barium tablet passed into the stomach. There was mild esophageal dysmotility. No reflux was elicited. No hiatal hernia was identified. IMPRESSION: 1. No esophageal mass or stricture. 2. Mild esophageal dysmotility. Electronically signed by: Aguila White M.D. 12/16/2017 9:32 AM Dictated Date/Time: 12/16/2017 9:31 AM
== END | disposition home or self-care (01) ==
LOC: C.RAD 08:52
PROVIDERS: ATTEND Internal Medicine
DX: K44.9 Diaphragmatic hernia without obstruction or gangrene (principal); K21.9 Gastro-esophageal reflux disease without esophagitis; R13.19 Other dysphagia

== ENCOUNTER 2018-01-28 21:32 | Emergency (ER) | payer OTHER ==
[~2018-01-28] VITALS: Ht 154.9 cm; Wt 100.6 kg
[2018-01-28 21:35] VITALS: Ht 154.9 cm; Wt 100.6 kg
[2018-01-28] MEDS ORDERED: BACITRACIN OINT 15 GM TUBE ONE (21:54)
[2018-01-28] MEDS ORDERED: CEPHALEXIN 500MG HOME PACK 1 EA BTL PO ONE (22:00)
[2018-01-28] MEDS ORDERED: NORCO 5/325MG HOME PACK PO ONE (22:00)
[2018-01-28] MEDS ORDERED: CEPH500C2 PO (22:06)
[2018-01-28] MEDS ORDERED: ALPR-411 PO (22:14)
[2018-01-28] MEDS ORDERED: LPR25 PO (22:14)
[2018-01-28] MEDS ORDERED: PROM12.57 PO (22:14)
[2018-01-28 22:52] VITALS: BP 146/90; PULSE 79; TEMP 36.6; O2SAT 97
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
== END 2018-01-28 22:54 | disposition home or self-care (01) ==
LOC: C.EDB 21:34
DX: T21.21XA Burn of second degree of chest wall, initial encounter (principal); X10.1XXA Contact with hot food, initial encounter; Y92.009 Unspecified place in unspecified non-institutional (private) residence as the place of occurrence of the external cause; F32.9 Major depressive disorder, single episode, unspecified; F41.1 Generalized anxiety disorder; K21.9 Gastro-esophageal reflux disease without esophagitis; Z90.711 Acquired absence of uterus with remaining cervical stump; Z88.6 Allergy status to analgesic agent; Z88.5 Allergy status to narcotic agent; Z88.8 Allergy status to other drugs, medicaments and biological substances

== ENCOUNTER 2018-06-13 21:58 | Emergency (ER) | payer OTHER ==
[~2018-06-13] VITALS: Ht 154.9 cm; Wt 102.7 kg
[~2018-06-13 21:58] MED LIST changes: -ALPR-411 PO; -METO25TA3 PO; -NXM/40 PO; -PRLSR20 PO; -PROM25TA16 PO
[2018-06-13 22:00] VITALS: TEMP 36.7; O2SAT 95; Ht 154.9 cm; Wt 102.7 kg
[2018-06-13] MEDS ORDERED: PROM12.57 PO (22:14)
[2018-06-13] MEDS ORDERED: ALPR-411 PO (22:14)
[2018-06-13] MEDS ORDERED: LPR25 PO (22:14)
[2018-06-13] MEDS ORDERED: SODIUM CHLORIDE 0.9% 1000ML 1,000 ML IV STA (22:22)
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
--- NOTE | 2018-06-13 22:43 | DIAGNOSTIC IMAGING REPORT ---
CHEST ONE VIEW PORTABLE CLINICAL HISTORY: Chest pain. COMPARISON STUDY: Chest CT September 30, 2017 and chest radiograph October 07, 2017. FINDINGS: No pneumothorax or pleural effusion is noted. There is no evidence for pulmonary edema. No consolidation is identified. Cardiomediastinal silhouette is stable. Appearance of the chest is unchanged. IMPRESSION: No acute cardiopulmonary findings. No change in appearance of the chest. Electronically signed by: Aguila White M.D. 06/13/2018 10:42 PM Dictated Date/Time: 06/13/2018 10:40 PM
[2018-06-13] MEDS ORDERED: RANI300T2 PO (22:56)
[2018-06-13 23:06] LABS: BASO % 0.1 %; BASO ABS # 0.01 K/uL (0-0.2); EOS % 0.9 %; EOS ABS # 0.07 K/uL (0-0.5); HEMATOCRIT 39.2 % (37-47); HEMOGLOBIN 13.1 g/dL (12.0-16.0); IG# 0.01 K/uL (0.00-0.02); LYMPH % 16.7 %; LYMPH ABS # 1.35 K/uL (1.2-3.4); MEAN CELL VOLUME 87.5 fL (80-100); MEAN CORPUSCULAR HEMOGLOBIN 29.2 pg (25-34); MEAN CORPUSCULAR HGB CONC 33.4 g/dl (32-36); MEAN PLATELET VOLUME 10.8 fL (7.4-10.4); MONO ABS # 0.32 K/uL (0.11-0.59); NEUT % 78.2 %; NEUT ABS # 6.32 K/uL (1.4-6.5); PLATELET COUNT 232 K/uL (130-400); RED CELL DISTRIBUTION WIDTH CV 13.9 % (11.5-14.5); RED CELL DISTRIBUTION WIDTH SD 44.2 fL (36.4-46.3); WHITE BLOOD COUNT 8.08 K/uL (4.8-10.8)
[2018-06-13 23:30] VITALS: BP 123/86
[2018-06-13 23:30] LABS: ALBUMIN 3.7 gm/dl (3.4-5.0); ALKALINE PHOSPHATASE 103 U/L (45-117); ALT/SGPT 23 U/L (12-78); AST/SGOT 13 U/L (15-37); BLOOD UREA NITROGEN 17 mg/dl (7-18); CALCIUM 9.2 mg/dl (8.5-10.1); CARBON DIOXIDE 26 mmol/L (21-32); CKMB < 1.0 ng/ml (0.5-3.6); CREATININE 1.01 mg/dl (0.60-1.20); GLUCOSE 105 mg/dl (70-99); LIPASE 141 U/L (73-393); SODIUM 139 mmol/L (136-145); TOTAL PROTEIN 8.3 gm/dl (6.4-8.2)
[2018-06-13] MEDS ORDERED: METO25TA56 PO (23:47)
[2018-06-13 23:58] VITALS: PULSE 88; O2SAT 100
== END 2018-06-13 23:58 | disposition home or self-care (01) ==
LOC: EDBD 21:58 → C.EDC 22:00
DX: I47.1 Supraventricular tachycardia (principal); K21.9 Gastro-esophageal reflux disease without esophagitis; Z82.49 Family history of ischemic heart disease and other diseases of the circulatory system; Z88.6 Allergy status to analgesic agent; Z88.8 Allergy status to other drugs, medicaments and biological substances